=== PATIENT | male | born 1950 | race Caucasian/White ===

== ENCOUNTER 2018-12-17 10:02 | Inpatient (IN) ==
[2018-11-11 16:49] LABS: Basophils # (auto) 0.03 K/uL (0-0.2); Basophils % (auto) 0.6 %; Eosinophils # (auto) 0.71 K/uL (0-0.5); Eosinophils % (auto) 13.1 %; Hematocrit (blood only) 43.4 % (42-52); Hemoglobin 14.5 g/dL (14.0-18.0); Immature Granulocytes # (auto) 0.01 K/uL (0.00-0.02); Immature Granulocytes % (auto) 0.2 %; Lymphocytes % (auto) 25.8 %; Mean Corpuscular Hgb Conc 33.4 g/dL (32-36); Mean Corpuscular Volume 86.3 fL (80-100); Monocytes # (auto) 0.62 K/uL (0.11-0.59); Monocytes % (auto) 11.4 %; Neutrophils # (auto) 2.66 K/uL (1.4-6.5); Neutrophils % (auto) 48.9 %; Platelet Count 216 K/uL (130-400); RDW Coefficient of Variation 13.8 % (11.5-14.5); RDW Standard Deviation 43.5 fL (36.4-46.3); Red Blood Count 5.03 M/uL (4.7-6.1); White Blood Count 5.43 K/uL (4.8-10.8)
[2018-11-11 17:06] LABS: INR 1.1 (0.9-1.1); Partial Thromboplastin Ratio 1.1; Partial Thromboplastin Time 30.6 Seconds (21.0-31.0); Prothrombin Time 11.4 Seconds (9.0-12.0)
[2018-11-11 17:08] LABS: Blood Urea Nitrogen 18 mg/dl (7-18); C Reactive Protein < 0.29 mg/dl (0-0.29); Calcium 8.9 mg/dl (8.5-10.1); Carbon Dioxide 28 mmol/L (21-32); Chloride 109 mmol/L (98-107); Est GFR (African American) 80.2; Est GFR (Non-African American) 69.2; Glucose 88 mg/dl (70-99); Potassium 4.4 mmol/L (3.5-5.1); Sodium 141 mmol/L (136-145)
--- NOTE | 2018-12-12 10:35 | Anesthesiology Consultation ---
Date of Service December 12, 2018 Assessment & Plan (1) Encounter for pre-operative examination: Xarelto instructions: Spoke with patient via phone 11/22/18; patient states he was advised to hold Xarelto 72 hours prior to surgery per surgeon/prescriber.* Chart Review Chart Review: Acceptable Risk for Surgery and Patient NOT seen in Pre Admission Testing History Surgery Operation Date: 12/17/18 08:50 Proposed Procedures p Right Total Knee Replacement - Bossman Vincent MD Height/Weight Height: 5 ft 11.5 in Weight: 98.4 kg Allergies Allergy/AdvReac Type Severity Reaction Status Date / Time latex Allergy Unknown Rash Verified 11/21/18 09:01 neoprene Allergy Unknown Rash Uncoded 11/21/18 09:01 Medications Home Medications Medication Instructions Recorded Confirmed Last Taken diclofenac sodium 75 mg PO BID 08/22/18 11/21/18 Unknown propranolol 60 mg PO QAM 08/22/18 11/21/18 Unknown multivitamin 1 tab PO QAM 11/21/18 11/21/18 Unknown rivaroxaban [Xarelto] 20 mg PO QAM 11/21/18 11/21/18 Unknown Past Medical History Medical History Aortic aneurysm PCP monitoring with annual imaging (3.8 cm per patient and stable x years) Deep vein thrombosis 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 2/2 inmobility in setting of knee injury; currently on xarelto Osteoarthritis Pulmonary embolism 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 2/2 inmobility in setting of knee injury; currently on xarelto Sleep apnea CPAP Tremor on propranolol Past Family History Family History Father Family history of cancer Brother Family history of cancer Past Surgical History Surgical History History of appendectomy History of arthroscopy of right knee History of colonoscopy History of tonsillectomy Social History Smoking Status: Former smoker tobacco type: cigarettes Hx Alcohol Use: Yes Alcohol type: beer alcohol intake frequency: other Hx Substance Use: No substance use type: does not use Testing Laboratory Results 11/11/18 13:25 11/11/18 13:25 PT 11.4 Seconds (9.0-12.0) 11/11/18 13:25 INR 1.1 (0.9-1.1) 11/11/18 13:25 APTT 30.6 Seconds (21.0-31.0) 11/11/18 13:25 Blood Type A Positive 11/11/18 13:26 Antibody Screen NEGATIVE 11/11/18 13:26 Electrocardiogram Date: 08/26/18 Findings: + SB @ (59) Chest X-Ray Date: 08/26/18 Findings: + NAD
--- NOTE | 2018-12-14 19:07 | History and Physical Report ---
DATE OF ADMISSION: 12/17/2018 CHIEF COMPLAINT: Right knee pain. HISTORY OF PRESENT ILLNESS: The patient is a 68-year-old gentleman from [place] who now presents for surgical treatment of his right knee. We had actually scheduled him for right knee replacement back in August but he developed a DVT in his left lower extremity and a PE. He has been put on Xarelto. He has now been cleared to proceed with surgery by his medical doctor. He has no known clotting disorder. There is a family history of blood clots. This patient has no history of clots in the past. With respect to his right knee, he has had a long history of knee problems. He had right knee scoped back in 1997, which did help him to some degree. Over the past several years, he has developed increased pain and discomfort. He has been treated with aspirations and injection which become less successful over time. He has resorted to using a cane to get around to his knee pain. He would like to have his right knee replaced. PAST MEDICAL HISTORY: 1. Sleep apnea with CPAP machine. 2. Arthritis. 3. Obesity. 4. History of DVT, PE on Xarelto 20 mg a day. PAST SURGICAL HISTORY: Include: 1. Tonsillectomy. 2. Right knee arthroscopy. ALLERGIES: None. CURRENT MEDICATIONS: 1. Propranolol. 2. Xarelto 20 mg a day. SOCIAL HISTORY: A 68-year-old male patient from [place]. 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 He does not smoke. FAMILY HISTORY: Significant for multiple family members with blood clots. REVIEW OF SYSTEMS: Negative for diabetes, neurologic problem, vascular problem, bleeding disorders. No known clotting disorders. He did have this one DVT or PE. PHYSICAL EXAMINATION: GENERAL: A fairly large middle-aged male. Looks to be in reasonably good health. HEENT: Benign. NECK: Supple, no lymphadenopathy. LUNGS: Clear to auscultation. HEART: Regular rate and rhythm. ABDOMEN: Soft, nontender, nondistended. EXTREMITIES: Grossly neurovascularly intact except as follows. Examination of the right knee reveals the patient walks with use of a cane. He has got varus alignment to his knee. He does limp on this side and has a varus thrust with weightbearing. He is tender over the medial joint line. Small knee effusion. Range of motion is 5-125. No pain with hip motion. X-RAYS: X-rays of the right knee reviewed. Shows advanced right knee DJD. He has got tricompartment disease. He has got osteophytes in all 3 compartments. He has got joint space narrowing. ASSESSMENT: A 68-year-old male with a history of a right knee arthroscopy in 1997 with advanced right knee degenerative joint disease. He has failed conservative care. We had scheduled him for surgery in the past, but he had a deep venous thrombosis and pulmonary embolism now been treated, now elects to proceed with surgery. PLAN: We will take him to the operating room and do right total knee replacement. The risks and benefits of right knee replacement were explained to the patient including but not limited to DVT, PE, , infection, neurological injury, vascular injury, bleeding problem, pain, limited range of motion, stiffness, failure to relieve symptoms, incomplete relief of symptoms, need for further surgery in future, fracture, leg length inequality, nerve palsy, persistent pain. I did tell him with his history of a blood clot, he is certainly at increased risk after surgery. We will take him off his Xarelto 3 days preoperatively and we will start prophylactically 24 hours postop. As far as discharge plans, he is planning to be discharged home using [facility] home health program.
[~2018-12-17 10:02] MED LIST: ACETAMINOPHEN 500 MG TAB PO SCH; BUPIVACAINE 0.5 % 5 MG/1 ML PF 10ML VIAL ONE; BUPIVACAINE LIPOSOME/PF 266 MG, BUPIVACAINE/EPINEPHRINE 50 ML, SODIUM CHLORIDE 0.9% 30 ... INFIL SCH; BUPIVACAINE/EPINEPHRINE 0.25% 1:200,000 30 ML VIAL ONE; CEFAZOLIN 2000MG 2,000 MG/15 ML SYR IV SCH; DEXAMETHASONE SOD INJ 4 MG/ML VIAL ONE; FAMOTIDINE 20 MG TAB PO SCH; GABAPENTIN 300 MG CAP PO SCH; LR 500ML BOLUS, THEN 15ML/HR IV SCH; LR 60ML/HR IV SCH; METOCLOPRAMIDE HCL 10 MG TABLET PO SCH; SCOPOLAMINE 1.5 MG TDSY TD SCH; TRANEXAMIC ACID 1,000 MG **IV Intra-op IV SCH
--- NOTE | 2018-12-17 11:15 | History & Physical Bridge Note ---
Date of Service December 17, 2018 History & Physical Bridge Note I have examined the patient, reviewed the History & Physical and in the interval since the performance of the History & Physical I have noted the following changes of clinical significance: no changes noted
[2018-12-17] MEDS ORDERED: MIDAZOLAM HCL 1 MG/ML 2ML VIAL ONE ×2 (13:22→13:51)
[2018-12-17] MEDS ORDERED: ALBUTEROL 0.5% NEB SOLN 2.5 MG/0.5 ML VIAL ONE (13:22)
[2018-12-17] MEDS ORDERED: fentaNYL citrate 100 MCG/2 ML VIAL ONE ×2 (13:22→13:51)
[2018-12-17] MEDS ORDERED: BUPIVACAINE LIPOSOME 1.3% 266 MG/20 ML VIAL ONE (13:25)
[2018-12-17] MEDS ORDERED: BACITRACIN INJ 50,000 UNIT VIAL ONE (13:25)
[2018-12-17] MEDS ORDERED: EPINEPHrine INJ 1 MG/ML AMP ONE (13:25)
[2018-12-17] MEDS ORDERED: SODIUM CHLORIDE 0.9% PF 50 ML VIAL ONE (13:25)
[2018-12-17] MEDS ORDERED: BUPIVACAINE 0.25% 30 ML VIAL ONE (13:26)
[2018-12-17] MEDS ORDERED: PROPOFOL IV EMULSION 10 MG/ML 20 ML VIAL IV ONE (14:12)
[2018-12-17] MEDS ORDERED: ONDANSETRON INJ 2 MG/ML 2 ML VIAL ONE (14:12)
[2018-12-17] MEDS ORDERED: LIDOCAINE HCL 2% 2 ML VIAL/AMP(20MG/ML) INFIL ONE (14:12)
[2018-12-17] MEDS ORDERED: ePHEDrine sulfate 50 MG/ML SYR ONE (14:19)
--- NOTE | 2018-12-17 15:36 | Post Operative Brief Note ---
PG Immediate Post Op with CF Date of Surgery December 17, 2018 Pre & Post Diagnosis Operation Date: 12/17/18 12:30 Pre-Op Diagnosis: right knee advanced degenerative joint disease Post-Op Diagnosis: right knee advanced degenerative joint disease Procedure Operation Date: 12/17/18 12:30 Actual Procedures p Right Total Knee Replacement Cemented(Right) - Bossman Vincent MD Surgeon Bossman Vincent MD Senior Agricultural Assistant Tawnya, COLT Estimated Blood Loss 50 Findings Consistent with Post-Op Diagnosis Fluids 1000 cc Specimens Specimen Description: Permanent specimen A: right knee bone and tissue Drains Uribe Catheter (16fr silicone uribe catheter placed by Doug Bowling PA-C, without difficulty; uribe demonstrates clear yellow urine. Output measured and recorded by anesthesia.) Anesthesia Type Spinal MAC Complications none Disposition Accompanied Patient To Recovery: No Disposition: Recovery Room
--- NOTE | 2018-12-17 16:01 | XRay Report ---
XR knee RT 2V routine HISTORY: 68 years-old Male Surgical Post Op right knee total joint arthroplasty. History of degenera tive joint disease COMPARISON: Right knee radiographs 08/06/2018 TECHNIQUE: 2 views of the right knee FINDINGS: Right knee total joint arthroplasty and patella resurfacing demonstrates satisfactory alignment. Into midline skin adrian are noted along with expected postsurgical soft tissue swelling and deep tissue air with surgical drainage catheter. IMPRESSION: Satisfactory alignment of the right knee total joint arthroplasty. The above report was generated using voice recognition software. It may contain grammatical, syntax o r spelling errors. Electronically signed by: Filemon Pastrana M.D. 12/17/2018 4:00 PM
--- NOTE | 2018-12-17 16:31 | Anesthesiology Progress Note ---
Date of Service December 17, 2018 Anesthesia Post Procedure Vital Signs Vital Signs: Temp Pulse Pulse Resp BP Pulse Ox 12/17/18 16:30 36.9 C 51 L 19 131/76 95 12/17/18 16:20 36.9 C 49 L 19 115/74 95 12/17/18 16:10 37.0 C 47 L 18 118/66 95 12/17/18 16:00 54 L 18 119/75 94 12/17/18 15:50 50 L 20 116/70 97 12/17/18 15:43 36.7 C 54 L 16 109/64 97 12/17/18 10:33 36.6 C 55 L 22 143/87 H 97 Transfer of Care Handoff Completed per policy Notes Mental Status: alert / awake / arousable Patient Amnestic to Procedure: Yes Nausea / Vomiting: adequately controlled Pain: adequately controlled Airway Patency, RR, SpO2: stable & adequate BP & HR: stable & adequate Hydration State: stable & adequate Anesthetic Complications: no major complications apparent
[2018-12-17] MEDS ORDERED: TAMSULOSIN HCL 0.4 MG CAP PO PRN (16:48)
[2018-12-17] MEDS ORDERED: BISACODYL 10 MG SUPP PR PRN (16:48)
[2018-12-17] MEDS ORDERED: ONDANSETRON INJ 2 MG/ML 2 ML VIAL IV PRN (16:48)
[2018-12-17] MEDS ORDERED: ALUMINUM/MAGNESIUM SUSP 30 ML UDC PO PRN (16:48)
[2018-12-17] MEDS ORDERED: NALOXONE HCL 0.4 MG/1 ML VIAL/CARP IV PRN (16:48)
[2018-12-17] MEDS ORDERED: MAGNESIUM HYDROXIDE SUSP 30 ML UDC PO PRN (16:48)
[2018-12-17] MEDS ORDERED: METOCLOPRAMIDE HCL INJ 5 MG/ML 2 ML VIAL IV PRN (16:48)
[2018-12-17] MEDS ORDERED: HYDROmorphone INJ 0.5 MG/0.5 ML SYR IV PRN (16:48)
[2018-12-17] MEDS: SODIUM CHLORIDE 0.9% 1000ML 1,000 ML IV SCH (17:23)
[2018-12-17] MEDS: CHECK SCOPOLAMINE PATCH PLACEMENT SCH ×2 (17:24→23:59)
[2018-12-17] MEDS: KETOROLAC TROMETHAMINE 15 MG/ML VIAL IV SCH ×2 (17:25→23:56)
[2018-12-17] MEDS: FERROUS GLUCONATE 324 MG TAB PO SCH (17:25)
[2018-12-17] MEDS: ASCORBIC ACID 500 MG TAB PO SCH (17:25)
[2018-12-17] MEDS: ACETAMINOPHEN 500 MG TAB PO SCH (21:01)
[2018-12-17] MEDS: SENNA 8.6 MG TAB PO SCH (21:01)
[2018-12-17] MEDS: DOCUSATE SODIUM 100 MG CAP PO SCH (21:02)
[2018-12-17] MEDS: CEFAZOLIN 2000MG 2,000 MG/15 ML SYR IV SCH (21:08)
--- NOTE | 2018-12-17 23:24 | Operative Report ---
DATE OF OPERATION: 12/17/2018 SURGEON: Bossman Vincent MD [employer]ILINGS [employer] PUMPER: HAYDEE Holden PREOPERATIVE DIAGNOSIS: Right knee degenerative joint disease. POSTOPERATIVE DIAGNOSIS: Right knee degenerative joint disease. PROCEDURE PERFORMED: Right cemented posterior stabilized total knee arthroplasty. COMPLICATIONS: None. ESTIMATED BLOOD LOSS: 50 mL. FLUID REPLACEMENT: 1000 mL crystalloid fluid replacement. TOURNIQUET TIME: 68 minutes at 300 mmHg. ANESTHESIA: Spinal with adductor canal block. DRAINS: None. SPECIMENS: Right knee sent for pathology. OPERATIVE INDICATIONS: The patient is a 68-year-old fairly active gentleman from [place] who had a long history of right knee pain and discomfort. He has been through extensive conservative treatment in the past which became less successful over time. He has become markedly debilitated by the pain such that he has had to use a cane to get around. X-rays revealed tricompartment disease. He elected to proceed with operative treatment. OPERATIVE FINDINGS: Operative findings revealed extensive grade 4 changes of the medial as well as patellofemoral compartments. He has a slight varus deformity to his knee. He had a very large knee joint effusion with some moderate synovitis. OPERATIVE IMPLANTS: Operative implants consisted of: 1. Biomet Vanguard size 72.5 right posterior stabilized femoral component. 2. Biomet size 79 tibial tray. 3. A 10 mm posterior stabilized polyethylene insert. 4. A 34 x 8.5 all poly patella. OPERATIVE PROCEDURE: The patient was taken to the operating room, identified and placed on the operating table in supine position. All contact areas were appropriately padded. IV antibiotics provided by anesthesia team. A spinal anesthetic and adductor canal block had been provided in the holding area. Odom catheter was placed in sterile fashion. Right thigh tourniquet was then placed and the right lower extremity was then prepped and draped in usual sterile fashion. The right leg was elevated and exsanguinated with an Esmarch and tourniquet was placed at 300 mmHg. An anterior approach of the right knee was then performed through a longitudinal incision centered over the patella. Sharp dissection was carried through subcutaneous tissue down to the level of the extensor mechanism. A medial parapatellar arthrotomy incision was made. Some subperiosteal dissection was carried out medially. The fat pad resected from beneath the patellar tendon. The lateral patellofemoral ligament was released. The patella was everted and knee was flexed. The osteophytes were taken off the distal femur. The ACL and PCL were then released from the distal femur and the tibia subluxated anteriorly. External tibial alignment jig was then placed in the anterior face of the tibia and adjusted 14 mm medially. Proximal tibial cut was made to remove about a millimeter of bone from the most deficient aspect of the medial tibial plateau. He did have a markedly varus tibia. The tibia was then sized to a size 79. Attention was then drawn to the femur. The distal femur was entered with a sharp drill. Intramedullary canal was suctioned. A right 6-degree valgus cutting guide was placed. Distal femoral cutting block was pinned in place. Distal femoral cut was made to take an additional 3 mm of bone off the distal femur. The femur was then sized to a size 72.5. We did downsize this slightly. The AP cutting block was pinned parallel to the epicondylar axis, which was 4 degrees of external rotation. The anterior cut, anterior chamfer cut, posterior cut, posterior chamfer cuts were made. Box cutting guide was placed and adjusted slightly lateral and the box cut was made. The knee was flexed. The remnants of the medial and lateral menisci were excised. The osteophytes were taken off the posterior aspect of the femur. A trial femoral component was placed. The tibial tray was pinned in maximum external rotation and drill and stem punch were used to create defect in proximal tibia for the tibial tray. The knee was then trialed and the 10 mm insert fit most appropriately. Attention was then drawn to the patella. The patella was cleaned of all soft tissues. Patella thickness measured 25 mm in thickness, was cut down to 15. It was sized to a size 34 patella. Lug holes were drilled for 34 patella. Lateral osteophyte was removed. Patella button was placed. Knee was taken through range of motion, patella tracked nicely with no thumbs test. Attention was then drawn toward placing the permanent components. All trial components were removed. Bone plug was placed in the distal femur to limit blood loss. A double batch of Palacos G cement was mixed. A Biomet Vanguard size 72.5 right posterior stabilized femoral component, size 79 tibial tray, 10 mm posterior stabilized polyethylene insert, and a 34 x 8.5 all poly patella were then cemented in place. Knee was brought into full extension until cement hardened. A final cement check was then performed. Pericapsular tissues were injected with a total of 100 mL of combination of 20 mL Exparel, 30 mL of normal saline, 50 mL 0.25% Marcaine with epinephrine. The patient did receive 1 gram of tranexamic acid. The tourniquet was then let down for final tourniquet time of 68 minutes. Hemostasis was assured with use of electrocautery. The wound was once again irrigated. Extensor mechanism was then closed with a combination of #1 PDS suture and #1 Vicryl suture in [id number] fashion. Extensor mechanism was checked and found to be intact. The subcutaneous tissue was then closed with 2 Dexon suture in a buried interrupted fashion. Skin was closed with skin adrian. Leg was then cleaned, dried and a sterile dressing of Xeroform, 4 x 4, sterile cast padding and Philippe bandage were applied. The patient then transferred to the recovery room in stable condition. The patient tolerated the procedure well with no complications. All needle and sponge counts were correct at the end of the operation. I attest to the content of the Intraoperative Record and any orders documented therein. Any exception s are noted below.
[2018-12-18] MEDS: SODIUM CHLORIDE 0.9% 1000ML 1,000 ML IV SCH
[2018-12-18] MEDS: CEFAZOLIN 2000MG 2,000 MG/15 ML SYR IV SCH (05:11)
[2018-12-18] MEDS: ACETAMINOPHEN 500 MG TAB PO SCH ×3 (05:11→21:46)
[2018-12-18] MEDS: KETOROLAC TROMETHAMINE 15 MG/ML VIAL IV SCH ×2 (05:11→12:05)
[2018-12-18 07:10] LABS: Hemoglobin 11.9 g/dL (14.0-18.0); Mean Corpuscular Hgb Conc 33.1 g/dL (32-36); Mean Corpuscular Volume 86.1 fL (80-100); Mean Platelet Volume 10.7 fL (7.4-10.4); Platelet Count 166 K/uL (130-400); RDW Coefficient of Variation 14.3 % (11.5-14.5); RDW Standard Deviation 45.4 fL (36.4-46.3); Red Blood Count 4.18 M/uL (4.7-6.1); White Blood Count 9.95 K/uL (4.8-10.8)
[2018-12-18 07:39] LABS: BUN Creatinine Ratio 14.2 (10-20); Calcium 8.2 mg/dl (8.5-10.1); Creatinine Clr Calc Pharmacy 72.4 ml/min; Est GFR (African American) 75.9; Est GFR (Non-African American) 65.5; Potassium 3.9 mmol/L (3.5-5.1)
[2018-12-18] MEDS ORDERED: MULTIVITAMIN TAB PO SCH (09:00)
[2018-12-18] MEDS: PROPRANOLOL HCL 60 MG LA CAP PO SCH (09:01)
[2018-12-18] MEDS: MULTIVITAMIN TAB PO SCH (09:01)
[2018-12-18] MEDS: FERROUS GLUCONATE 324 MG TAB PO SCH ×2 (09:02→17:47)
[2018-12-18] MEDS: DOCUSATE SODIUM 100 MG CAP PO SCH ×2 (09:02→21:47)
[2018-12-18] MEDS: ASCORBIC ACID 500 MG TAB PO SCH ×2 (09:02→17:48)
--- NOTE | 2018-12-18 10:13 | Anesthesiology Progress Note ---
Date of Service December 18, 2018 Anesthesia Post Procedure Vital Signs Vital Signs: Temp Pulse Pulse Pulse Resp BP Pulse Ox 12/18/18 03:11 36.8 C 56 L 14 149/77 H 94 12/17/18 23:18 36.5 C 46 L 16 158/76 H 94 12/17/18 19:53 36.5 C 55 L 16 116/62 92 12/17/18 18:54 36.3 C L 45 L 16 118/65 97 12/17/18 17:49 37 C 49 L 16 115/64 96 12/17/18 17:15 36.7 C 51 L 16 128/75 96 12/17/18 16:40 36.7 C 47 L 16 113/64 95 12/17/18 16:30 36.9 C 51 L 19 131/76 95 12/17/18 16:20 36.9 C 49 L 19 115/74 95 12/17/18 16:10 37.0 C 47 L 18 118/66 95 12/17/18 16:00 54 L 18 119/75 94 12/17/18 15:50 50 L 20 116/70 97 12/17/18 15:43 36.7 C 54 L 16 109/64 97 12/17/18 10:33 36.6 C 55 L 22 143/87 H 97 Notes Mental Status: alert / awake / arousable and participated in evaluation Nausea / Vomiting: adequately controlled Pain: adequately controlled Airway Patency, RR, SpO2: stable & adequate BP & HR: stable & adequate Hydration State: stable & adequate Neuraxial Anesthesia: sensory block resolved
--- NOTE | 2018-12-18 13:55 | Progress Note ---
DATE: 12/18/2018 SUBJECTIVE: A 68-year-old gentleman postop day 1 from a right knee replacement. He is doing well. Pain is controlled. Had a little bit of issues with some confusion. Denies any chest pain or shortness of breath. Not feeling dizzy or lightheaded. OBJECTIVE: VITAL SIGNS: Temperature 36.6. Vital signs stable. GENERAL: Physical examination shows a pleasant, middle-aged male. Sitting up in bed and talking to his family. Looks comfortable. EXTREMITIES: Examination of the right leg reveals the dressing to be in place. There is some bloody drainage which has been reinforced. He can dorsiflex and plantarflex his foot appropriately. He is neurologically intact. LABORATORY DATA: Hemoglobin 11.9. Hematocrit 36.0. Electrolytes are stable. ASSESSMENT: A 68-year-old gentleman postop day 1 from left knee replacement, doing well. Does have a history of DVT and PE in the past, normally on Xarelto. He has had a little bit of confusion, which is just likely related to medicines and foreign environment and , but seems pretty appropriate this afternoon. PLAN: 1. DVT prophylaxis including thigh-high TEDs, SCDs, and Xarelto. We are going to put him on a prophylactic dose for the first of 72 hours and then convert him to a full-strength dose on discharge. 2. PT/OT. Weight bear as tolerated. Right total knee protocol. 3. Pain control. We are going to try and limit pain medicines to avoid confusion issues. He has taken Tylenol and Toradol. 4. Confusion. Seems pretty awake, alert and appropriate this afternoon. I talked to his about trying to keep him up during the day and encourage him to sleep at night. Will limit his pain medicines. 5. Disposition: Plan to discharge to home with some home health once adequately recovered.
[2018-12-18] MEDS: NICOTINE 7 MG/24 HR TDSY TD SCH (14:49)
[2018-12-18] MEDS: RIVAROXABAN 10 MG TABLET PO SCH (16:25)
[2018-12-18] MEDS: TRAMADOL HCL 50 MG TABLET PO PRN (21:46)
[2018-12-18] MEDS: SENNA 8.6 MG TAB PO SCH (21:47)
[2018-12-19] MEDS: TRAMADOL HCL 50 MG TABLET PO PRN ×2 (05:08→10:49)
[2018-12-19] MEDS: ACETAMINOPHEN 500 MG TAB PO SCH (05:09)
[2018-12-19] MEDS: NICOTINE 7 MG/24 HR TDSY TD SCH (07:38)
[2018-12-19] MEDS: MULTIVITAMIN TAB PO SCH (07:38)
[2018-12-19] MEDS: FERROUS GLUCONATE 324 MG TAB PO SCH (07:38)
[2018-12-19] MEDS: PROPRANOLOL HCL 60 MG LA CAP PO SCH (07:39)
[2018-12-19] MEDS: ASCORBIC ACID 500 MG TAB PO SCH (07:39)
[2018-12-19] MEDS: DOCUSATE SODIUM 100 MG CAP PO SCH (07:39)
--- NOTE | 2018-12-19 09:10 | Progress Note ---
DATE: 12/19/2018 SUBJECTIVE: A 68-year-old gentleman postop day 2 from right knee replacement. He is doing a bit better today. Pain is controlled. No real confusion overnight. No chest pain or shortness of breath. Not feeling dizzy or lightheaded. OBJECTIVE: VITAL SIGNS: Temperature 37.2. Vital signs stable. GENERAL: Reveals a pleasant, middle-aged male. He is sitting up in his bedside chair, looks pretty comfortable. EXTREMITIES: Examination of the right leg reveals the dressing to be clean, dry and intact. Some [id number] swelling. Calf is soft and supple. He is neurologically intact. ASSESSMENT: A 68-year-old gentleman with a history of a DVT and PE in the past postop day 2 from right knee replacement, doing well. Pain is reasonably well controlled. He is neurologically intact. PLAN: 1. DVT prophylaxis including thigh-high TEDs, SCDs, and Xarelto. He is on a prophylactic dose today and we will discharge him on a normal dose starting tomorrow. 2. PT/OT. Weight bear as tolerated. Right total knee protocol. 3. Pain control, doing okay with current pain regimen. 4. Disposition: Plan to discharge to home with home health likely later today.
[2018-12-19] MEDS: RIVAROXABAN 10 MG TABLET PO SCH (10:25)
--- NOTE | 2018-12-24 06:46 | Discharge Summary ---
ADMITTING PHYSICIAN AND SURGEON: Dr. Bossman Vincent. ADMITTING DIAGNOSIS: Right knee degenerative joint disease. SURGERY PERFORMED: Right total knee arthroplasty. SECONDARY DIAGNOSES: Sleep apnea, arthritis, obesity, history of deep venous thrombosis and pulmonary embolism. CONSULTS: None obtained. HISTORY AND PHYSICAL EXAMINATION: Well documented in the patient's chart. HOSPITAL COURSE: The patient was admitted on 12/17/2018, underwent total knee arthroplasty, tolerated the procedure well. There were no complications. He was transferred to the PACU postoperatively and later to the orthopedic floor for further care. He was given Ancef for antibiotic prophylaxis, RENNY stockings, SCDs and Xarelto for DVT prophylaxis. Hemoglobin, hematocrit and vital signs were monitored during his hospital stay and remained stable. He did not require any blood transfusions. There were no complications. By postoperative day 2, he was tolerating a regular diet, pain was controlled with oral pain medicine. He was participating in physical therapy. Postop day 2, he was discharged home, set up with home health services. He was given printed discharge instructions as well as new prescriptions for extra-strength Tylenol and tramadol. Continue his home medicines including Xarelto. Continue RENNY stockings, PT, weightbearing as tolerated. Follow up approximately 2 weeks postop or sooner if there are any problems or concerns.
== END 2018-12-19 11:46 | disposition home health service (06) | DRG 470 ==
LOC: ASU 10:02 → 3E 15:41

== ENCOUNTER 2021-04-17 18:48 | Inpatient (IN) ==
[2021-04-17] MEDS ORDERED: HYDROmorphone INJ 1 MG/ML SYRINGE IM STA (21:31)
[2021-04-17] MEDS ORDERED: KETOROLAC TROMETHAMINE 15 MG/ML VIAL IM STA (21:31)
[2021-04-17] MEDS ORDERED: PROMETHAZINE HCL INJ 25 MG/ML 1 ML VIAL IM STA (21:31)
--- NOTE | 2021-04-17 21:37 | Emergency Department Note ---
History of Present Illness General Chief complaint: Leg Injury/Pain Stated complaint: LT LEG PAIN, HERNIATED DISC Time Seen by Provider: 04/17/21 21:19 Source: patient History of Present Illness Provider complaint: Left low back pain Onset (ago): month(s) Location: back and left Radiation: extremity Pain Consistency: + intermittent Maximum Pain Intensity: 9 Quality: + sharp Relieved By: + other (Sitting) Exacerbated By: + other (Walking) Associated symptoms: no chest pain, no cough, no fever/chills, no headaches, no nausea/vomiting, no shortness of breath or no weakness This is a 70-year-old male with a history of lumbar disc herniation on the left side presenting with left lower back pain rating down his left leg for over a month. He does state that he fell off of a ladder about a month ago but he was having pain before that. He describes the pain as a stabbing pain which is worse when he tries to walk. Is better when he sits down. He rates it a 9 out of 10 in severity. No associated numbness or weakness to the legs. He has had no fecal urinary incontinence or saddle anesthesia. He is followed by pain management and also sees Dr. Diez of orthopedic spine. He states that he had an injection to his spine 3 weeks ago which seemed to make it worse. He states that he was given oxycodone but that does not help it so he has not been taking it. He has not been taking anything for pain currently. He denies any fever, cough or cold symptoms, chest pain, shortness of breath, abdominal pain or urinary symptoms. He denies any recent injury. 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 2/2 inmobility in setting of knee injury; currently on xarelto Osteoarthritis Pulmonary embolism 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 2/2 inmobility in setting of knee injury; currently on xarelto Sleep apnea CPAP Tremor on propranolol Surgical History History of appendectomy History of arthroscopy of right knee History of colonoscopy History of tonsillectomy Status post right knee replacement Family History Father Family history of cancer Brother Family history of cancer Social History Smoking Status: Never smoker Second Hand Exposure: No; Hx Alcohol Use: Yes Alcohol type: beer Hx Substance Use: No Preferred Language: Czech Communication Ability: Effective Wiring Mechanic Required: No Beliefs That Will Affect Care: None Current Living Situation: Alone Feels Safe at Home: Yes Assistive Devices: Walker Review of Systems See HPI for pertinent positives & negatives. and A total of 10 systems reviewed and were otherwise negative Physical Exam Vital Signs Vital Signs - 24 hr 04/17/21 18:52 04/17/21 23:34 Temperature 36.6 C Temperature Source Temporal Artery Scan Pulse Rate 76 Pulse Rate [Right Finger] 59 L Respiratory Rate 20 20 Blood Pressure 156/92 H Blood Pressure [Right Arm] 144/78 H Blood Pressure Mean 113 Blood Pressure Mean [Right Arm] 100 Pulse Oximetry 97 94 Oxygen Delivery Method Room Air Sepsis Recent Fever Within 48 Hours No Sepsis New/Unexplained Change in Mental Status N/A Sepsis Action Taken by Nursing No Action Required Constitutional: Vital signs reviewed. Eyes: Pupils are equal round reactive to light. Conjunctiva are noninjected. ENT: Pharynx is clear without erythema or exudate. Mucous membranes are moist. Neck supple without meningeal signs. Respiratory: Clear to auscultation bilaterally. Breath sounds are equal bilaterally. Cardiovascular: Regular rate and rhythm. No rubs or gallops. GI: Soft, nondistended and nontender. Bowel sounds are present. Musculoskeletal: No peripheral edema. No lower extremity tenderness. Integumentary: No cyanosis. or jaundice. Neurological: The patient is awake and alert. No focal deficits. Motor and sensation are intact throughout the lower extremities bilaterally. Strength is slightly increased on the left leg compared to the right. Positive straight leg raise at 35 degrees on the left side only. Psychiatric: Normal affect. Not anxious appearing. Course Administered Medications Discontinued Medications Hydromorphone HCl (Hydromorphone Inj 1 Mg/Ml Syringe) 1 mg IM NOW STA Stop: 04/17/21 21:32 Last Admin: 04/17/21 22:02 Dose: 1 mg Documented by: [id number] Ketorolac Tromethamine (Ketorolac Tromethamine 15 Mg/Ml Vial) 10 mg IM NOW STA Stop: 04/17/21 21:32 Last Admin: 04/17/21 22:02 Dose: 10 mg Documented by: [id number] Promethazine HCl (Promethazine Hcl Inj 25 Mg/Ml 1 Ml Vial) 25 mg IM NOW STA Stop: 04/17/21 21:32 Last Admin: 04/17/21 22:02 Dose: 25 mg Documented by: [id number] Medical Decision Making Differential Diagnosis Intervertebral disc disease, disc herniation, radiculopathy, cauda equina syndrome, fracture Medical Records Attestation: I reviewed the patient's medical records. I did perform a limited focused review of portions of the patient's old chart on the electronic medical record. The patient has had no recent pertinent visits to this hospital. Home Medications Current Medication List: was personally reviewed by me Laboratory Data Result diagrams: 04/17/21 23:40 04/17/21 23:40 Lab Results 04/17/21 Range/Units 23:40 WBC 6.21 (4.8-10.8) K/uL RBC 4.88 (4.7-6.1) M/uL Hgb 14.5 (14.0-18.0) g/dL Hct 42.6 (42-52) % MCV 87.3 (80-100) fL MCH 29.7 (25-34) pg MCHC 34.0 (32-36) g/dL RDW Std Deviation 42.4 (36.4-46.3) fL RDW Coeff of Luis Enrique 13.2 (11.5-14.5) % Plt Count 204 (130-400) K/uL MPV 10.4 (7.4-10.4) fL Immature Gran % (Auto) 0.2 % Neut % (Auto) 51.9 % Lymph % (Auto) 26.6 % [place] % (Auto) 12.1 % Eos % (Auto) 8.9 % Baso % (Auto) 0.3 % Neut # (Auto) 3.23 (1.4-6.5) K/uL Lymph # (Auto) 1.65 (1.2-3.4) K/uL [place] # (Auto) 0.75 H (0.11-0.59) K/uL Eos # (Auto) 0.55 H (0-0.5) K/uL Baso # (Auto) 0.02 (0-0.2) K/uL Immature Gran # (Auto) 0.01 (0.00-0.02) K/uL Imaging Data Attestation: I personally reviewed and interpreted this imaging study as follows: My Impression: X-ray of the lumbar spine per my interpretation shows no acute fracture or d islocation. He does have compression deformities which appear old. He has scoliosis and degenerative changes with osteophytes. MDM Narrative I did evaluate the patient as noted above. The patient is presenting with persistent low back pain with lumbar radiculopathy on the left side for over a month. He is followed by pain management and had an injection which worsened his pain 3 weeks ago. He is on oxycodone but not taking it because it does not help him. He is able to walk and has no neurologic deficits to suggest cauda equina syndrome. He did walk from the triage area to the C pod. I did order and personally reviewed the images of the patient's lumbar spine x-rays as described above. I did not see any acute fracture. He does have old compression deformities as well as degenerative changes and some scoliosis. I did treat the patient with IM Dilaudid 1 mg, Phenergan 25 mg and Toradol 10 mg IM. At the request of the patient and his I did talk to Dr. Diez of orthopedic spine. He felt the patient should be admitted at this point as he has been having intractable pain and would likely just come back if we discharged him today. He did hospitalize the patient. I put in some orders for an IV and blood work as well as a Covid test. I did discuss the plan with the patient and his . He is feeling better at this time. CBC does not demonstrate any leukocytosis or anemia. Platelet count is 204. Impression & Plan Intractable low back pain, Left lumbar radiculopathy Discharge Plan Visit Data Chief Complaint: Leg Injury/Pain Stated Complaint: LT LEG PAIN, HERNIATED DISC ED Provider: Zaheer Toribio Discharge Problem: Intractable low back pain, Left lumbar radiculopathy Patient Disposition: Being Evaluated by Hospitalist Forms Stand Alone Forms: [facility] Prescriptions Prescriptions: No Action propranolol 60 mg Capsule,Extended Release 24 Hr 60 mg PO QAM RF: 0 Referrals Referrals: Melany Bar MD [Primary Care Provider] -
[2021-04-17 23:55] LABS: Basophils # (auto) 0.02 K/uL (0-0.2); Basophils % (auto) 0.3 %; Eosinophils # (auto) 0.55 K/uL (0-0.5); Eosinophils % (auto) 8.9 %; Hematocrit (blood only) 42.6 % (42-52); Hemoglobin 14.5 g/dL (14.0-18.0); Immature Granulocytes # (auto) 0.01 K/uL (0.00-0.02); Immature Granulocytes % (auto) 0.2 %; Lymphocytes # (auto) 1.65 K/uL (1.2-3.4); Lymphocytes % (auto) 26.6 %; Mean Corpuscular Hemoglobin 29.7 pg (25-34); Mean Corpuscular Volume 87.3 fL (80-100); Mean Platelet Volume 10.4 fL (7.4-10.4); Monocytes # (auto) 0.75 K/uL (0.11-0.59); Monocytes % (auto) 12.1 %; Neutrophils # (auto) 3.23 K/uL (1.4-6.5); Neutrophils % (auto) 51.9 %; Platelet Count 204 K/uL (130-400); RDW Coefficient of Variation 13.2 % (11.5-14.5); RDW Standard Deviation 42.4 fL (36.4-46.3); Red Blood Count 4.88 M/uL (4.7-6.1); White Blood Count 6.21 K/uL (4.8-10.8)
[2021-04-18 00:06] LABS: Partial Thromboplastin Ratio 0.9; Partial Thromboplastin Time 24.5 Seconds (21.0-31.0); Prothrombin Time 10.1 Seconds (9.0-12.0)
[2021-04-18 00:18] LABS: BUN Creatinine Ratio 16.7 (10-20); Calcium 8.6 mg/dl (8.5-10.1); Creatinine Clr Calc Pharmacy 88.5 ml/min; Est GFR (Non-African American) 85.4 ml/min
[2021-04-18] MEDS ORDERED: ALUMINUM/MAGNESIUM SUSP 30 ML UDC PO PRN (02:47)
[2021-04-18] MEDS ORDERED: LORazepam 0.5 MG TAB PO PRN (02:47)
[2021-04-18] MEDS ORDERED: SOD PHOSPHATE/SOD BIPHOSPHATE ENEMA 132 ML BTL PR PRN (02:47)
[2021-04-18] MEDS ORDERED: ACETAMINOPHEN 1,000 MG/100 ML VIAL IV PRN (02:47)
[2021-04-18] MEDS ORDERED: NALOXONE HCL 0.4 MG/1 ML VIAL/CARP IV PRN (02:47)
[2021-04-18] MEDS ORDERED: HYDROmorphone INJ 0.5 MG/0.5 ML SYR IV PRN (02:47)
[2021-04-18] MEDS ORDERED: LORazepam 0.5 MG/1 ML VIAL IV PRN (02:47)
[2021-04-18] MEDS ORDERED: PROMETHAZINE HCL 12.5 MG in SODIUM CHLORIDE 0.9% 50 ML IV PRN (02:47)
[2021-04-18] MEDS ORDERED: ONDANSETRON INJ 2 MG/ML 2 ML VIAL IV PRN (02:47)
[2021-04-18] MEDS ORDERED: ACETAMINOPHEN 500 MG TAB PO PRN (02:47)
[2021-04-18] MEDS ORDERED: diphenhydrAMINE Capsule 25 MG CAP PO PRN (02:47)
[2021-04-18] MEDS ORDERED: MAGNESIUM HYDROXIDE SUSP 30 ML UDC PO PRN (02:47)
[2021-04-18] MEDS ORDERED: hydrOXYzine HCl 25 MG TAB PO PRN (02:47)
[2021-04-18] MEDS ORDERED: ONDANSETRON 4 MG OD TAB PO PRN (02:47)
[2021-04-18] MEDS ORDERED: METOCLOPRAMIDE HCL INJ 5 MG/ML 2 ML VIAL IV PRN (02:47)
[2021-04-18] MEDS ORDERED: HYDROmorphone INJ 1 MG/ML SYRINGE IV PRN (02:47)
[2021-04-18] MEDS: LACTATED RINGER'S 1,000 ML IV SCH ×2 (03:07→15:45)
[2021-04-18] MEDS ORDERED: ceFAZolin 2000MG 2,000 MG/15 ML SYR IV SCH (06:00)
--- NOTE | 2021-04-18 08:39 | Hospitalist Consultation ---
Date of Consultation April 18, 2021 Assessment & Plan (1) Intractable low back pain: (2) Left lumbar radiculopathy: - Pain management, bowel regimen and DVT ppx per the primary team - PT/OT consults after surgical procedure - Follow am CBC to monitor for acute blood loss, current hgb is 14.5 - EKG to be obtained - CXR to be obtained -Covid is negative on admission (3) Aortic aneurysm: - Hx of measuring 3.8 cm per pt, I cannot obtain find other imaging studies which either confirm or deny this information -Patient previously on Xarelto for history of DVT/PE which seemed to be provoked, he has not been on this medication for about 2 years now. (4) Deep vein thrombosis: -Occurred in December 2018 s/p right knee injury prior to TKA (5) Pulmonary embolism: -Occurred in December 2018 s/p right knee injury prior to TKA. (6) Sleep apnea: -Continue CPAP (7) Tremor: -Continue propranolol - Noted alcohol use of 3-4 beers daily, will order WASS to monitor. Last drink was last evening. DVT PPx - teds, scds CODE: Full code- discussed with pt at bedside Dispo: From home, likely to remain in the hospital x 1-2 days Thank you for involving us in the care of Mr. Hercules. Please do not hesitate to call with questions or concerns. At this time medicine service will follow along. Supervising Physician Co-Signing Physician Notes Attending addendum: The patient was seen and examined in medical floor He has been complaining of back pain with radiation to the left leg since July and has had multiple injection and physical therapy without any improvement He has severe lumbar disc protrusion at L L4-L5 and stenosis involving L5-S1 and he will go for surgery either today or tomorrow Has been feeling much better since admission and denies any significant pain at rest On examination Lying in bed comfortably Hemodynamically stable Chestclear to auscultate bilaterally HeartS1, S2 regular and no murmur Abdomenbenign Extremitiesno edema His admission labs, EKG and imaging studies reviewed There is no contraindication for proposed surgery with severe back pain with radiculopathy and spinal stenosis Agree with assessment and plan as outlined above by KOBE Mohamud Dr History of Present Illness Reason for Consultation: Medical management Requesting Physician: Dr. Diez Attending Physician: Tushar Diez, DO History of Present Illness This is a 70-year-old male with PMHx of AAA, hx of DVT and PE in 2019 secondary to knee injury and s/p R TKA, sleep apnea on cpap, osteoarthritis, fine tremor on propranolol. Pt presents to the ER with history of lumbar disc herniation last night and left side pain radiating down the left leg for over a month. Pain has been stabbing in nature, worse when standing better when he sits down, rates it as a 9/10 at its worst. Currently is well managed after getting pain medications in the ER. Denies any associated numbness, bladder or bowel incontinence. He has been followed by pain management. Previously the patient received a spinal injection approximately 3 weeks ago however notes this seemed to make his pain worse versus better. The patient was prescribed oxycodone however reports he has not taken it as it does not seem to help the pain, and has not been taking any OTC medications. He last ate on 04/17 around 830 pm. He has not taken any of his morning medications yet today. SHx: History of smoking from age 13 until mid 50s, 1 pack/day, quit approximately 20 years ago, drinks 3-4 beers daily. Patient denies that he drinks due to dependence and that this improves his tremor at home. FHx: Pt reports hx of father having blood clots in his late 80s, and brother having DVT. Pt is unsure if these events were provoked or not. 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 2/2 inmobility in setting of knee injury; currently on xarelto Osteoarthritis Pulmonary embolism 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 2/2 inmobility in setting of knee injury; currently on xarelto Sleep apnea CPAP Tremor on propranolol Surgical History History of appendectomy History of arthroscopy of right knee History of colonoscopy History of tonsillectomy Status post right knee replacement Family History Father Family history of cancer Brother Family history of cancer Social History Smoking Status: Never smoker Second Hand Exposure: No; Do You Dip or Chew Tobacco: Yes (Daily); Tobacco Cessation Education Requested by Patient: No Hx Alcohol Use: Yes Alcohol type: beer Hx Substance Use: No Preferred Language: Nigerian Communication Ability: Effective Eight Section Blower Required: No Beliefs That Will Affect Care: None Current Living Situation: Spouse Other Information That Helps Us Care for You: No Feels Safe at Home: Yes Safety Concerns: Feels Safe At This Time Assistive Devices: CPAP, Crutches, Denture - Upper, Glasses and Hearing Aid - Bilateral Review of Systems Review of Systems: Constitutional: No fever, sweats or chills Eyes: No diplopia, no worsening or blurred vision ENT: normal hearing, no trouble swallowing Respiratory: No cough, sputum, dyspnea at rest or on exertion Cardiovascular: No chest pain, tightness or palpitations Abdomen: No pain, nausea, vomiting, diarrhea or constipation Back: Left low back/left gluteal pain radiating down into the posterior left leg to the left calf muscle. Musculoskeletal: No joint pain, calf pain, swelling Neurologic: No weakness, numbness/tingling, or balance problems Psychiatric: No anxiety or depression Skin: No rash or itch Physical Exam Physical Exam: General: awake, alert, no apparent distress Head: Normocephalic, atraumatic ENT: PERRL, EOMI, no pharyngeal exudate, mucous membranes moist Chest: Clear to auscultation, on room air, no adventitious breath sounds Cardiac: Regular rate and rhythm, no murmur, no JVD, normal peripheral pulses, good capillary refill Abdominal: NABS x 4 quadrants, soft, nondistended, nontender to palpation, no rebound or guarding Extremities: Normal inspection, no peripheral edema or erythema, calfs nontender to palpation Psych: Normal mood and affect Neuro: AAO x 3, strength intact, 4/5 with left leg raise and left plantar flexion, also notes increased pain with these movements in the left posterior leg and low back,no motor deficits, + fine intentional tremor, speech is clear, no peripheral sensory deficits Results & Data Results & Data ([facility]) Vital Signs (Past 12 Hours) Vital Signs Pulse Resp BP Pulse Ox 04/18/21 06:19 57 L 20 146/85 H 95 04/18/21 04:53 53 L 20 127/72 96 04/18/21 03:07 57 L 20 139/84 96 04/18/21 02:50 56 L 20 134/62 93 04/18/21 02:43 56 L 20 134/62 93 04/18/21 01:10 57 L 20 117/67 98 04/17/21 23:34 59 L 20 144/78 H 94 Laboratory Results 04/17/21 04/17/21 04/17/21 23:40 23:40 23:40 WBC 6.21 RBC 4.88 Hgb 14.5 Hct 42.6 MCV 87.3 MCH 29.7 MCHC 34.0 RDW Std Deviation 42.4 RDW Coeff of Luis Enrique 13.2 Plt Count 204 MPV 10.4 Immature Gran % (Auto) 0.2 Neut % (Auto) 51.9 Lymph % (Auto) 26.6 [place] % (Auto) 12.1 Eos % (Auto) 8.9 Baso % (Auto) 0.3 Neut # (Auto) 3.23 Lymph # (Auto) 1.65 [place] # (Auto) 0.75 H Eos # (Auto) 0.55 H Baso # (Auto) 0.02 Immature Gran # (Auto) 0.01 PT INR APTT PTT Ratio Sodium 141 Potassium 4.0 Chloride 107 Carbon Dioxide 26 Anion Gap 8.0 BUN 15 Creatinine 0.89 Est Cr Clr Drug Dosing 88.5 Est GFR ( Amer) 99.0 Est GFR (Non-Af Amer) 85.4 BUN/Creatinine Ratio 16.7 Glucose 96 Calcium 8.6 SARS-CoV-2, RNA, NAAT NEGATIVE 04/17/21 23:40 WBC RBC Hgb Hct MCV MCH MCHC RDW Std Deviation RDW Coeff of Luis Enrique Plt Count MPV Immature Gran % (Auto) Neut % (Auto) Lymph % (Auto) [place] % (Auto) Eos % (Auto) Baso % (Auto) Neut # (Auto) Lymph # (Auto) [place] # (Auto) Eos # (Auto) Baso # (Auto) Immature Gran # (Auto) PT 10.1 INR 1.0 APTT 24.5 PTT Ratio 0.9 Sodium Potassium Chloride Carbon Dioxide Anion Gap BUN Creatinine Est Cr Clr Drug Dosing Est GFR ( Amer) Est GFR (Non-Af Amer) BUN/Creatinine Ratio Glucose Calcium SARS-CoV-2, RNA, NAAT Diagnostic Findings Lumbar Spine X-Ray 04/17/21 20:20 XR lumbar spine 2-3V CLINICAL HISTORY: pain eval for fx TECHNIQUE: 3 views of the lumbar spine were obtained. Comparison: None available at the time of this dictation. FINDINGS: No fractures or subluxations are identified. A sclerotic lesion in the superior vertebral body of L2 likely represents a Schmorl's node or bone island. Degenerative changes are seen in the lumbar spine. Alignment appears unremarkable. IMPRESSION: Degenerative changes as above without acute fracture or subluxation. ACT 112: Negative or not required by law. Electronically signed by: Spencer Echols M.D. 04/18/2021 8:53 AM
--- NOTE | 2021-04-18 08:48 | History & Physical Report ---
Date of Service April 18, 2021 Assessment & Plan (1) Lumbar disc herniation with radiculopathy: Plan: Assessment lumbar spinal stenosis with herniated nucleus pulposus and radiculopathy. Plan patient does have an MRI dated 04/11/2021 performed at [facility]. It demonstrates massive foraminal far lateral disc herniation L4-5 on the left with severe neuroforaminal stenosis L5-S1 on the left. His MRI findings are consistent with his complaints and clinical exam. At this time in light of his progressive neuro deficits severe pain and failed nonoperative care I am recommending urgent lumbar decompression and fusion L4-5 L5-S1. Risk benefits pros cons alternatives were outlined in detail. Admission and Anticipated Discharge Date Admission Date: April 17, 2021 History of Present Illness Chief Complaint: Back and left leg pain with weakness Primary Care Provider: Melany Bar MD This is a 70-year-old male that side over a month of severe left leg radiculopathy. Describes involving left buttock posterior thigh extending to the anterior tibia and occasionally into the foot. The right lower extremity is asymptomatic. He is undergone 1 epidural injection which seemed to exacerbate his radiculopathy. He has tried [id number] as well as narcotic pain medications to no avail. He is markedly uncomfortable. Notes significant weakness to left lower extremity when ambulating. Describes his pain as a 9 out of 10. Denies any loss of bowel bladder function. 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 2/2 inmobility in setting of knee injury; currently on xarelto Osteoarthritis Pulmonary embolism 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 2/2 inmobility in setting of knee injury; currently on xarelto Sleep apnea CPAP Tremor on propranolol Surgical History History of appendectomy History of arthroscopy of right knee History of colonoscopy History of tonsillectomy Status post right knee replacement Family History Father Family history of cancer Brother Family history of cancer Social History Smoking Status: Never smoker Second Hand Exposure: No; Hx Alcohol Use: Yes Alcohol type: beer Hx Substance Use: No Preferred Language: Turkish Communication Ability: Effective Social Service Worker Required: No Beliefs That Will Affect Care: None Current Living Situation: Alone Feels Safe at Home: Yes Assistive Devices: Walker Physical Exam Physical Exam: On exam the patient is in obvious distress. He exhibits significant tension signs with straight leg raising on the left with negative on the right. Sensory appears to be symmetric and intact. There is diminished deep tendon reflexes to lower extremity. He does exhibit plus 5 out of 5 right sided extensor hallucis longus plantar flexion dorsiflexion quadriceps. The left he is a 4 - quadricep with a 3+ left dorsiflexion extensor pollicis longus. Results & Data ([facility]) Vital Signs (Past 12 Hours) Vital Signs Pulse Resp BP Pulse Ox 04/18/21 06:19 57 L 20 146/85 H 95 04/18/21 04:53 53 L 20 127/72 96 04/18/21 03:07 57 L 20 139/84 96 04/18/21 02:50 56 L 20 134/62 93 04/18/21 02:43 56 L 20 134/62 93 04/18/21 01:10 57 L 20 117/67 98 04/17/21 23:34 59 L 20 144/78 H 94 Code Status & VTE Plan VTE Prophylaxis Plan VTE Prophylaxis will be ordered: Yes
--- NOTE | 2021-04-18 08:54 | XRay Report ---
XR lumbar spine 2-3V CLINICAL HISTORY: pain eval for fx TECHNIQUE: 3 views of the lumbar spine were obtained. Comparison: None available at the time of this dictation. FINDINGS: No fractures or subluxations are identified. A sclerotic lesion in the superior vertebral body of L2 likely represents a Schmorl's node or bone island. Degenerative changes are seen in the lumbar spine. Alignment appears unremarkable. IMPRESSION: Degenerative changes as above without acute fracture or subluxation. ACT 112: Negative or not required by law. Electronically signed by: Spencer Echols M.D. 04/18/2021 8:53 AM
--- NOTE | 2021-04-18 10:00 | XRay Report ---
XR chest 1V portable CLINICAL HISTORY: preop TECHNIQUE: Single frontal radiograph of the chest was obtained. Comparison: Comparison is made to chest one view 08/26/2018 FINDINGS: No lines and tubes are seen. The cardiomediastinal silhouette is normal. The lungs are clear. No evid ence of pleural effusion or pneumothorax. IMPRESSION: No acute chest disease. ACT 112: Negative or not required by law. Electronically signed by: Spencer Echols M.D. 04/18/2021 9:59 AM
--- NOTE | 2021-04-18 10:06 | Anesthesiology Consultation ---
Date of Service April 18, 2021 Assessment & Plan Chart Review Chart Review: Acceptable Risk for Surgery and Patient NOT seen in Pre Admission Testing Consults Requested none ASA ASA3 Proposed Anesthesia Anesthesia Type: General History Surgery Operation Date: 04/18/21 11:25 Proposed Procedures p L4-L5, L5-S1 Decompression Fusion - Tushar Diez DO Height/Weight Height: 5 ft 11 in Weight: 95.6 kg Allergies Allergy/AdvReac Type Severity Reaction Status Date / Time latex Allergy Intermediate Rash Verified 04/17/21 21:46 neoprene Allergy Intermediate Rash Uncoded 04/17/21 21:46 Medications Home Medications Medication Instructions Recorded Confirmed Last Taken propranolol 60 mg capsule,24 60 mg PO QAM 08/22/18 04/17/21 04/16/21 hr,extended release Active Medications Generic Name Dose Route Start Last Admin Trade Name Freq PRN Reason Stop Dose Admin Lactated Ringer's 1,000 mls @ 75 mls/hr 04/18/21 02:47 04/18/21 03:07 Lr IV 05/18/21 02:46 75 mls/hr .[id number] GIOVANNA Administration Past Medical History Medical History Aortic aneurysm PCP monitoring with annual imaging (3.8 cm per patient and stable x years) Deep vein thrombosis 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 2/2 inmobility in setting of knee injury; currently on xarelto Osteoarthritis Pulmonary embolism 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 2/2 inmobility in setting of knee injury; currently on xarelto Sleep apnea CPAP Tremor on propranolol Exercise / Class Metabolic Activity III < 4 Walking/Shop/Light housework Past Family History Family History Father Family history of cancer Brother Family history of cancer Past Surgical History Surgical History History of appendectomy History of arthroscopy of right knee History of colonoscopy History of tonsillectomy Status post right knee replacement Past Anesthesia History No Hx of Anesthesia Complications and No Family Hx of Anesthesia Complications History of PONV No Hx of PONV and No Hx of Motion Sickness Social History Smoking Status: Never smoker tobacco type: cigarettes Hx Alcohol Use: Yes Alcohol type: beer alcohol intake frequency: other Hx Substance Use: No substance use type: does not use Physical Exam Vital Signs Last Vital Signs Temp 36.6 C 04/17/21 18:52 Pulse 57 L 04/18/21 06:19 Resp 20 04/18/21 06:19 BP 146/85 H 04/18/21 06:19 Pulse Ox 95 04/18/21 06:19 Testing Laboratory Results 04/17/21 23:40 04/17/21 23:40 PT 10.1 Seconds (9.0-12.0) 04/17/21 23:40 INR 1.0 (0.9-1.1) 04/17/21 23:40 APTT 24.5 Seconds (21.0-31.0) 04/17/21 23:40 Electrocardiogram Date: 04/18/21 Findings: + SB @ (at 52) Chest X-Ray Date: 04/18/21 Findings: + NAD
[2021-04-18] MEDS: PROPRANOLOL HCL 60 MG LA CAP PO SCH (10:27)
--- NOTE | 2021-04-18 15:59 | Electrocardiogram Report ---
Test Reason : Blood Pressure : / mmHG Vent. Rate : 052 BPM Atrial Rate : 052 BPM P-R Int : 170 ms QRS Dur : 098 ms QT Int : 450 ms P-R-T Axes : 053 024 059 degrees QTc Int : 418 ms Sinus bradycardia Otherwise normal ECG When compared with ECG of 26-AUG-2018 11:00, No significant change was found Confirmed by Butch Bruce ([id number]) on 04/18/2021 3:59:00 PM Referred By: REFERRED SELF Confirmed By:Butch Bruce
[2021-04-19] MEDS: LACTATED RINGER'S 1,000 ML IV SCH ×3 (05:14→17:31)
[2021-04-19] MEDS ORDERED: EPINEPHrine INJ 1 MG/ML AMP ONE (06:58)
[2021-04-19] MEDS ORDERED: BUPIVACAINE 0.5 % 5 MG/1 ML MPF 30ML VIAL ONE (06:58)
[2021-04-19] MEDS ORDERED: NEOSTIGMINE METHYLSULFATE 1 MG/ML 10ML VIAL ONE (06:59)
[2021-04-19] MEDS ORDERED: LIDOCAINE 2% 2 ML VIAL/AMP(20MG/ML) INFIL ONE (06:59)
[2021-04-19] MEDS ORDERED: DEXAMETHASONE SOD INJ 4 MG/ML VIAL ONE (06:59)
[2021-04-19] MEDS ORDERED: MIDAZOLAM HCL 1 MG/ML 2ML VIAL ONE (06:59)
[2021-04-19] MEDS ORDERED: GLYCOPYRROLATE 0.2 MG/ML VIAL ONE ×2 (06:59→09:09)
[2021-04-19] MEDS ORDERED: fentaNYL citrate 100 MCG/2 ML VIAL ONE (06:59)
[2021-04-19] MEDS ORDERED: ONDANSETRON INJ 2 MG/ML 2 ML VIAL ONE ×2 (06:59→09:09)
[2021-04-19] MEDS ORDERED: PROPOFOL IV EMULSION 10 MG/ML 20 ML VIAL IV ONE (06:59)
[2021-04-19] MEDS ORDERED: HYDROmorphone INJ 2 MG/ML SYR/VIAL ONE (07:01)
[2021-04-19] MEDS ORDERED: ROCURONIUM BROMIDE 10 MG/ML 5 ML VIAL IV ONE ×3 (07:01→10:03)
[2021-04-19] MEDS ORDERED: SODIUM CHLORIDE 0.9% INJ 10 ML VIAL ONE (07:01)
[2021-04-19] MEDS ORDERED: LARYING-O-JET KIT (LTA) ONE (07:01)
--- NOTE | 2021-04-19 08:09 | History & Physical Bridge Note ---
Date of Service April 19, 2021 History & Physical Bridge Note I have examined the patient, reviewed the History & Physical and in the interval since the performance of the History & Physical I have noted the following changes of clinical significance: no changes noted Lumbar decompression fusion L4-5 L5-S1
[2021-04-19] MEDS ORDERED: ONDANSETRON INJ 2 MG/ML 2 ML VIAL IV PRN ×2 (08:27→11:38)
[2021-04-19] MEDS ORDERED: HYDROmorphone INJ 1 MG/ML SYRINGE IV PRN ×2 (08:27→11:38)
[2021-04-19] MEDS ORDERED: ATROPINE SULFATE 0.1 MG/ML 10ML SYR IV PRN (08:27)
[2021-04-19] MEDS ORDERED: ePHEDrine sulfate 50 MG/ML AMP IV PRN (08:27)
[2021-04-19] MEDS ORDERED: fentaNYL citrate 100 MCG/2 ML VIAL IV PRN (08:27)
[2021-04-19] MEDS ORDERED: FLOSEAL HEMOSTATIC MATRIX 10ML TOP ONE (09:54)
[2021-04-19] MEDS ORDERED: ePHEDrine sulfate 50 MG/ML SYR ONE (10:03)
--- NOTE | 2021-04-19 10:30 | Operative Report ---
Post Operative Report Pre & Post Diagnosis Operation Date: 04/18/21 11:25 <No data on this case meets the specified criteria> Operation Date: 04/19/21 07:00 Pre-Op Diagnosis: Lumbar spinal stenosis with foraminal disc herniation Post-Op Diagnosis: Same I identified the patient and participated in the time-out.: Yes Procedure Operation Date: 04/18/21 11:25 <No data on this case meets the specified criteria> Operation Date: 04/19/21 07:00 Actual Procedures #1 lumbar decompression bilateral medial facetectomies and foraminotomies L3-4, L4-5 and L5-S1. #2 posterior spinal fusion L4-5 L5-S1. #3 placement posterior instrumentation L4-5 L5-S1. #4 interbody fusion L4-5 L5-S1. #5 placement of ti tanium interbody cage 12 x 26 mm at L4-L5 and 11 x 26 mm at L5-S1. #6 placement locally harvested morselized autograft in the posterior gutters. #7 placement infuse collagen sponge, and master graft in the posterior lateral gutters and I factor interbody space. Surgeon Tushar Diez, Ingot Supervisor Natalee De La Paz Estimated Blood Loss 200 Findings Consistent with Post-Op Diagnosis Specimens None Indications This is a 70-year-old male presents with significant decline in status with severe radiculopathy and neuro deficit and is here for urgent decompression fusion. Description of Procedure Patient was met with identified informed consent obtained. Patient was then taken to the operative suite underwent ablation placed in a prone position on Sunny table top Guillermo frame. All bony prominences well-padded eyes inspected to ensure no external pressure placed upon the. This point the lumbar spine was prepped and draped in normal sterile fashion. Sharp dissection with the assistance of Bovie cautery was performed down to and exposing the lamina and transverse processes of L4-L5 and sacral ala bilaterally. From caudal cephalad fashion complete laminectomy L5 L4 partial laminectomy of L3 was performed including bilateral medial facetectomies foraminotomies addressing all lateral recess and foraminal stenosis. This did include the resection of the far lateral discrimination at L4-5 on the left which was creating severe neural compression. After decompression pedicle screws were placed in L4-L5 and S1 levels bilaterally with assistance of fluoroscopy and the properly sized latricia placed. By way of a transforaminal approach on the left complete discectomy of of L5-S1 was performed endplates curetted to subcortically bone and a 11 x 26 mm titanium cage filled with I factor tapped in position. Then proceeded L4-L5 and again by way of a transforaminal approach and left complete discectomy performed endplates curetted to subcortically bone and a 12 x 26 mm titanium cage filled I factor tapped in position. The rods were then compressed locked in final position bilaterally. The transverse processes of L 4 L5 and sacral ala burred to subcortical bleeding bone. Infuse collagen sponge master graft local autograft was placed in the posterior gutters. 15 round GILLES drain inserted. The incision was then closed with 1 Vicryl the fascia 2-0 Vicryl subcutaneously and 4 Monocryl for final skin closure. Steri-Strip sterile dressing was placed. Patient will continue PACU stable condition. Please note spinal cord monitoring was utilized at the procedure no changes noted. Lastly Natalee De La Paz was present at the entire surgery involved in patient positioning complex portions of the surgery and fascial closure. I attest to the content of the Intraoperative Record and any orders documented therein. Any exceptions are noted below.
--- NOTE | 2021-04-19 10:44 | Fluoroscopy Report ---
FL lumbar spine 2-3V CLINICAL HISTORY: L4-L5, L5-S1 DECOMP/FUSION COMPARISON STUDY: 04/17/2021 FLUOROSCOPY TIME: 22 seconds. FLUOROSCOPIC IMAGES: 2 FINDINGS: The patient is status post interpedicular screw and latricia fixation from L4 through S1 with di sc spacers in place. IMPRESSION: Status post internal fixation. ACT 112: Negative or not required by law. Electronically signed by: Melecio Ortiz M.D. 04/19/2021 10:43 AM
[2021-04-19] MEDS ORDERED: ONDANSETRON 4 MG OD TAB PO PRN (11:38)
[2021-04-19] MEDS ORDERED: LORazepam 0.5 MG/1 ML VIAL IV PRN (11:38)
[2021-04-19] MEDS ORDERED: oxyCODONE HCL IR 5 MG TAB (IMMEDIATE RELEASE) PO PRN (11:38)
[2021-04-19] MEDS ORDERED: NALOXONE HCL 0.4 MG/1 ML VIAL/CARP IV PRN (11:38)
[2021-04-19] MEDS ORDERED: ACETAMINOPHEN 1,000 MG/100 ML VIAL IV PRN (11:38)
[2021-04-19] MEDS ORDERED: ACETAMINOPHEN 500 MG TAB PO PRN (11:38)
[2021-04-19] MEDS ORDERED: hydrOXYzine HCl 25 MG TAB PO PRN (11:38)
[2021-04-19] MEDS ORDERED: DO NOT ADMINISTER PNEUMOCOCCAL VACCINE PRN (11:38)
[2021-04-19] MEDS ORDERED: MAGNESIUM HYDROXIDE SUSP 30 ML UDC PO PRN (11:38)
[2021-04-19] MEDS ORDERED: LORazepam 0.5 MG TAB PO PRN (11:38)
[2021-04-19] MEDS ORDERED: ALUMINUM/MAGNESIUM SUSP 30 ML UDC PO PRN (11:38)
[2021-04-19] MEDS ORDERED: DO NOT ADMINISTER FLU VACCINE PRN (11:38)
[2021-04-19] MEDS ORDERED: FAMOTIDINE 20 MG TAB PO PRN (11:38)
[2021-04-19] MEDS ORDERED: HYDROmorphone INJ 0.5 MG/0.5 ML SYR IV PRN (11:38)
[2021-04-19] MEDS ORDERED: diphenhydrAMINE Capsule 25 MG CAP PO PRN (11:38)
[2021-04-19] MEDS ORDERED: METOCLOPRAMIDE HCL INJ 5 MG/ML 2 ML VIAL IV PRN (11:38)
[2021-04-19] MEDS ORDERED: bisacodyL 10 MG SUPP PR PRN ×2 (11:38→23:28)
[2021-04-19] MEDS ORDERED: SOD PHOSPHATE/SOD BIPHOSPHATE ENEMA 132 ML BTL PR PRN (11:38)
[2021-04-19] MEDS ORDERED: PROMETHAZINE HCL 12.5 MG in SODIUM CHLORIDE 0.9% 50 ML IV PRN (11:38)
[2021-04-19] MEDS ORDERED: traMADol HCL 50 MG TABLET PO PRN (11:38)
[2021-04-19] MEDS: PROPRANOLOL HCL 60 MG LA CAP PO SCH (11:59)
--- NOTE | 2021-04-19 12:15 | Anesthesiology Progress Note ---
Date of Service April 19, 2021 Anesthesia Post Procedure Vital Signs Vital Signs: Temp Pulse Pulse Resp BP BP Pulse Ox 04/19/21 11:40 97.5 F L 52 L 18 156/86 H 94 04/19/21 11:25 54 L 12 153/87 H 95 04/19/21 11:15 97.0 F L 59 L 14 157/84 H 95 04/19/21 11:05 64 12 120/87 95 04/19/21 10:55 66 12 121/94 96 04/19/21 10:46 97.0 F L 78 16 165/85 H 97 04/19/21 07:58 98.4 F 57 L 18 138/82 93 04/19/21 07:11 98.1 F 50 L 16 139/65 94 04/18/21 22:21 97.9 F 60 16 152/76 H 96 04/18/21 19:30 97.9 F 58 L 18 150/86 H 95 04/18/21 15:20 97.7 F 62 14 118/69 95 04/18/21 12:24 98.2 F 56 L 18 133/71 94 Pain Intensity Left Leg: Pain Intensity: 2 Transfer of Care Handoff Completed per policy Notes Mental Status: alert / awake / arousable and participated in evaluation Patient Amnestic to Procedure: Yes Nausea / Vomiting: adequately controlled Pain: adequately controlled Airway Patency, RR, SpO2: stable & adequate BP & HR: stable & adequate Hydration State: stable & adequate Anesthetic Complications: no major complications apparent and Pt Satisfied with anesthetic care
--- NOTE | 2021-04-19 12:48 | Hospitalist Progress Note ---
Date of Service April 19, 2021 Assessment & Plan (1) Intractable low back pain: (2) Left lumbar radiculopathy: Plan: S/PActual Procedures #1 lumbar decompression bilateral medial facetectomies and foraminotomies L3-4, L4-5 and L5-S1. #2 posterior spinal fusion L4-5 L5-S1. #3 placement posterior instrumentation L4-5 L5-S1. #4 interbody fusion L4-5 L5-S1. #5 placement of titanium interbody cage 12 x 26 mm at L4-L5 and 11 x 26 mm at L5-S1. #6 placement locally harvested morselized autograft in the posterior gutters. #7 placement infuse collagen sponge, and master graft in the posterior lateral gutters and I factor interbody space. POD#0 ebl 200ml; GILLES drain in place tolerated procedure well Pain management, bowel regimen and DVT ppx per the primary team PT/OT consults after surgical procedure monitor hgb, pre op 14.5 (3) Aortic aneurysm: Plan: Hx of measuring 3.8 cm per pt Patient previously on Xarelto for history of DVT/PE which seemed to be provoked, he has not been on this medication for about 2 years now (4) Deep vein thrombosis: Plan: Occurred in December 2018 s/p right knee injury prior to TKA (5) Pulmonary embolism: Plan: Occurred in December 2018 s/p right knee injury prior to TKA (6) Sleep apnea: Plan: Continue CPAP (7) Tremor: Plan: Continue propranolol Noted alcohol use of 3-4 beers daily, will order WASS to monitor. no s/sx of withdrawal DVT PPx: SCD/TEDS FULL CODE Patient was seen and examined in collaboration with Dr. Akins, please see addendum Thank you for this consultation. We will follow the patient with you during their hospital stay. You can reach a member of the [facility] Hospitalist Team 04/12 via hospitalist role on [employer]. The chart was completed utilizing [employer] Speech voice recognition software. Grammatical errors, random word insertions, pronoun errors, and incomplete sentences are an occasional consequence of this system due to software limitations, ambient noise, and hardware issues. Any formal questions or concerns about the content, text, or information contained within the body of this dictation should be directly addressed to the provider for clarification.. Admission and Anticipated Discharge Date Admission Date: April 17, 2021 Subjective Pt was seen and examined in room 312. He is s/p back surgery. Overall he feels well. Denies pain, f/c/s, cp, sob, n/v/d, abd pain. No acute concerns. Review of Systems Review of Systems: All systems reviewed & are unremarkable except as noted in HPI & below Physical Exam Physical Exam: Gen: WD/WN, M, sitting up in bed, NAD, A&O x3 HEENT: Normocephalic, atraumatic, conjunctivae moist, sclerae anicteric, mucous membranes moist. Lung: Clear to Auscultation bilaterally, no wheezes/rales/rhonchi Heart: bradycardic rate, regular rhythm, no murmurs, rubs, or gallops Abdomen: Soft, NT, ND +BS x 4 Extremities: No edema Skin: Warm, no rash, negative turgor. : uribe draining clear yellow urine Results & Data Results & Data ([facility]) Vital Signs (Past 12 Hours) Vital Signs Temp Pulse Pulse Resp BP Pulse Ox 04/19/21 12:37 65 16 156/88 H 91 04/19/21 12:14 36.3 C L 54 L 16 138/76 95 04/19/21 11:40 36.4 C L 52 L 18 156/86 H 94 04/19/21 11:25 54 L 12 153/87 H 95 04/19/21 11:15 36.1 C L 59 L 14 157/84 H 95 04/19/21 11:05 64 12 120/87 95 04/19/21 10:55 66 12 121/94 96 04/19/21 10:46 36.1 C L 78 16 165/85 H 97 04/19/21 07:58 36.9 C 57 L 18 138/82 93 04/19/21 07:11 36.7 C 50 L 16 139/65 94 Diagnostic Findings Lumbar Spine X-Ray 04/19/21 07:10 FL lumbar spine 2-3V CLINICAL HISTORY: L4-L5, L5-S1 DECOMP/FUSION COMPARISON STUDY: 04/17/2021 FLUOROSCOPY TIME: 22 seconds. FLUOROSCOPIC IMAGES: 2 FINDINGS: The patient is status post interpedicular screw and latricia fixation from L4 through S1 with disc spacers in place. IMPRESSION: Status post internal fixation. ACT 112: Negative or not required by law. Electronically signed by: Melecio Ortiz M.D. 04/19/2021 10:43 AM Medications Administered Current Inpatient Medications Acetaminophen (Acetaminophen 500 Mg Tab) 1,000 mg PO Q8H PRN PRN Reason: MILD Pain Scale 1,2,3 & Pre PT Stop: 05/18/21 02:46 Al Hydrox/Mg Hydrox/Simethicone (Aluminum/Magnesium Susp 30 Ml Udc) 30 ml PO Q6H PRN PRN Reason: Dyspepsia Stop: 05/18/21 02:46 Atropine Sulfate (Atropine Sulfate 0.1 Mg/Ml 10ml Syr) 0.5 mg IV Q1M PRN PRN Reason: PACU Use-HR<40 &/or Bradycardi Stop: 04/19/21 16:27 Bisacodyl (Bisacodyl 10 Mg Supp) 10 mg MD DAILY PRN PRN Reason: Constipation Stop: 05/19/21 23:27 Diphenhydramine HCl (Diphenhydramine Capsule 25 Mg Cap) 25 mg PO Q6H PRN PRN Reason: Allergic Rhinitis/Insomnia Stop: 05/18/21 02:46 Ephedrine Sulfate (Ephedrine Sulfate 50 Mg/Ml Amp) 5 mg IV Q5M PRN PRN Reason: PACU Use Only-SBP<90 mmHg Stop: 04/19/21 16:27 Famotidine (Famotidine 20 Mg Tab) 20 mg PO Q12H PRN PRN Reason: Dyspepsia Stop: 05/19/21 11:37 Fentanyl Citrate (Fentanyl Citrate 100 Mcg/2 Ml Vial) 50 mcg IV Q5M PRN PRN Reason: PACU Use Only-Pain Stop: 04/19/21 16:27 Hydromorphone HCl (Hydromorphone Inj 0.5 Mg/0.5 Ml Syr) 0.5 mg IV Q3H PRN PRN Reason: MOD pain (scale 4-6) & Pre PT Stop: 05/02/21 02:46 Hydromorphone HCl (Hydromorphone Inj 1 Mg/Ml Syringe) 1 mg IV Q3H PRN PRN Reason: severe pain (scale 7-10) Stop: 05/02/21 02:46 Hydromorphone HCl (Hydromorphone Inj 1 Mg/Ml Syringe) 0.25 mg IV Q5M PRN PRN Reason: PACU Use Only-Pain Stop: 04/19/21 16:27 Hydroxyzine HCl (Hydroxyzine Hcl 25 Mg Tab) 25 mg PO Q8H PRN PRN Reason: Anxiety Stop: 05/18/21 02:46 Acetaminophen (Ofirmev) 1,000 mg in 100 mls @ 400 mls/hr IV Q8H PRN PRN Reason: Pain Rating 1-3 & Pre PT Stop: 04/21/21 02:46 Lorazepam (Ativan) 0.5 mg in 1 mls @ 1 mls/min IV Q8H PRN PRN Reason: Sedation/Anxiety Stop: 05/18/21 02:46 Promethazine HCl 12.5 mg/ (Sodium Chloride) 50.5 mls @ 202 mls/hr IV Q6H PRN PRN Reason: Nausea &/or Vomiting Stop: 05/18/21 02:46 Cefazolin Sodium (Ancef 2000mg) 2,000 mg in 15 mls @ 3.75 mls/min IV Q8H GIOVANNA; Protocol Lactated Ringer's (Lr) 1,000 mls @ 150 mls/hr IV .Q6H40M GIOVANNA Stop: 05/19/21 11:37 Last Admin: 04/19/21 12:36 Dose: 150 mls/hr Documented by: Dexamethasone 6 mg/ Syringe 1.5 mls @ 1 mls/min IV DAILY GIOVANNA Stop: 04/22/21 09:02 Influenza Virus Vaccine Quadrival (Do Not Administer Flu Vaccine) 1 ea N/A PRN PRN PRN Reason: Notification Stop: 05/19/21 11:37 Lorazepam (Lorazepam 0.5 Mg Tab) 0.5 mg PO Q8H PRN PRN Reason: sedation/anxiety Stop: 05/18/21 02:46 Magnesium Hydroxide (Magnesium Hydroxide Susp 30 Ml Udc) 30 ml PO Q24H PRN PRN Reason: Constipation Stop: 05/18/21 02:46 Metoclopramide HCl (Metoclopramide Hcl Inj 5 Mg/Ml 2 Ml Vial) 10 mg IV Q6H PRN PRN Reason: Nausea &/or Vomiting Stop: 05/18/21 02:46 Naloxone HCl (Naloxone Hcl 0.4 Mg/1 Ml Vial/Carp) 0.1 mg IV Q5M PRN PRN Reason: Oversedation/respiratory dep Stop: 05/18/21 02:46 Ondansetron HCl (Ondansetron Inj 2 Mg/Ml 2 Ml Vial) 4 mg IV Q6H PRN PRN Reason: Nausea &/or Vomiting Stop: 05/18/21 02:46 Ondansetron HCl (Ondansetron 4 Mg Od Tab) 4 mg PO Q6H PRN PRN Reason: Nausea Stop: 05/18/21 02:46 Ondansetron HCl (Ondansetron Inj 2 Mg/Ml 2 Ml Vial) 4 mg IV ONCE PRN PRN Reason: PACU Use Only-Nausea/Vomiting Stop: 04/19/21 16:27 Oxycodone HCl (Oxycodone Hcl Ir 5 Mg Tab (Immediate Release)) 5 - 10 mg PO Q4H PRN PRN Reason: mod to severe pain Stop: 05/02/21 02:46 Pneumococcal Polyvalent Vaccine (Do Not Administer Pneumococcal Vaccine) 1 ea N/A PRN PRN PRN Reason: Notification Stop: 05/19/21 11:37 Polyethylene Glycol (Polyethylene (Miralax) 17 Gm Pack) 17 gm PO Q6 GIOVANNA Stop: 05/20/21 05:59 Propranolol HCl (Propranolol Hcl 60 Mg La Cap) 60 mg PO QAM GIOVANNA Stop: 05/18/21 08:59 Last Admin: 04/19/21 11:59 Dose: Not Given Documented by: Senna/Docusate Sodium (Docusate Sodium/Senna 50/8.6mg Tab) 2 tab PO HS GIOVANNA Stop: 05/19/21 20:59 Sodium Biphosphate/Sodium Phosphate (Sod Phosphate/Sod Biphosphate Enema 132 Ml Btl) 132 ml MD ONE PRN PRN Reason: Constipation Stop: 05/18/21 02:46 Tramadol HCl (Tramadol Hcl 50 Mg Tablet) 50 - 100 mg PO Q4H PRN PRN Reason: Moderate-Severe pain & Pre PT Stop: 05/19/21 11:37
[2021-04-19] MEDS: ceFAZolin 2000MG 2,000 MG/15 ML SYR IV SCH (17:22)
[2021-04-19] MEDS: DOCUSATE SODIUM/SENNA 50/8.6MG TAB PO SCH (21:37)
[2021-04-19] MEDS: oxyCODONE HCL IR 5 MG TAB (IMMEDIATE RELEASE) PO PRN (21:37)
[2021-04-20] MEDS: ceFAZolin 2000MG 2,000 MG/15 ML SYR IV SCH (00:13)
[2021-04-20] MEDS: POLYETHYLENE (MIRALAX) 17 GM PACK PO SCH ×4 (04:38→23:06)
[2021-04-20 07:23] LABS: Basophils # (auto) 0.01 K/uL (0-0.2); Basophils % (auto) 0.1 %; Eosinophils # (auto) 0.04 K/uL (0-0.5); Eosinophils % (auto) 0.4 %; Hematocrit (blood only) 37.3 % (42-52); Hemoglobin 12.7 g/dL (14.0-18.0); Immature Granulocytes # (auto) 0.01 K/uL (0.00-0.02); Immature Granulocytes % (auto) 0.1 %; Lymphocytes # (auto) 1.38 K/uL (1.2-3.4); Lymphocytes % (auto) 12.5 %; Mean Corpuscular Hemoglobin 29.2 pg (25-34); Mean Corpuscular Volume 85.7 fL (80-100); Mean Platelet Volume 10.8 fL (7.4-10.4); Monocytes # (auto) 1.63 K/uL (0.11-0.59); Monocytes % (auto) 14.7 %; Neutrophils # (auto) 7.99 K/uL (1.4-6.5); Neutrophils % (auto) 72.2 %; Platelet Count 195 K/uL (130-400); RDW Coefficient of Variation 13.2 % (11.5-14.5); RDW Standard Deviation 41.4 fL (36.4-46.3); Red Blood Count 4.35 M/uL (4.7-6.1); White Blood Count 11.06 K/uL (4.8-10.8)
[2021-04-20 08:07] LABS: BUN Creatinine Ratio 13.7 (10-20); Calcium 8.2 mg/dl (8.5-10.1); Creatinine Clr Calc Pharmacy 79.6 ml/min; Est GFR (African American) 87.8 ml/min; Est GFR (Non-African American) 75.8 ml/min; Potassium 3.8 mmol/L (3.5-5.1)
[2021-04-20] MEDS: dexAMETHasone 6 MG in SYRINGE 0 ML IV SCH ×2 (09:13→09:15)
[2021-04-20] MEDS: PROPRANOLOL HCL 60 MG LA CAP PO SCH (09:14)
--- NOTE | 2021-04-20 10:10 | Hospitalist Progress Note ---
Date of Service April 20, 2021 Assessment & Plan (1) Intractable low back pain: (2) Left lumbar radiculopathy: Plan: S/PActual Procedures #1 lumbar decompression bilateral medial facetectomies and foraminotomies L3-4, L4-5 and L5-S1. #2 posterior spinal fusion L4-5 L5-S1. #3 placement posterior instrumentation L4-5 L5-S1. #4 interbody fusion L4-5 L5-S1. #5 placement of titanium interbody cage 12 x 26 mm at L4-L5 and 11 x 26 mm at L5-S1. #6 placement locally harvested morselized autograft in the posterior gutters. #7 placement infuse collagen sponge, and master graft in the posterior lateral gutters and I factor interbody space. 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 no s/sx of withdrawal DVT PPx: SCD/TEDS FULL CODE Patient was seen and examined in collaboration with Dr. Marie, please see addendum Thank you for this consultation. We will follow the patient with you during their hospital stay. You can reach a member of the [facility] Hospitalist Team 04/12 via hospitalist role on tiger text. The chart was completed utilizing [employer] Speech voice recognition software. Grammatical errors, random word insertions, pronoun errors, and incomplete sentences are an occasional consequence of this system due to software limi tations, ambient noise, and hardware issues. Any formal questions or concerns about the content, text, or information contained within the body of this dictation should be directly addressed to the provider for clarification.. Admission and Anticipated Discharge Date Admission Date: April 17, 2021 delayed entry date of service noted above Attending Addendum: care coordinated with BERNADINE Bateman please refer to her notes for full details, I agree with her notes patient seen and examined, records reviewed by myself as well on exam, patient seen resting in chair, comfortable, not in distress mild low back pain no chest pain, dyspnea, palpitations, dizziness no other symptoms VS noted and reviewed oriented x3 , not in distress, speaks in sentences with no effort nor accessory muscle use normal rate, regular rhythm, no murmurs clear breath sounds bilaterally non distended, soft, nontender back- dressing in place, drain in place with serous discharge no bipedal edema, erythema, warmth no neuro deficits WBC 11 Hg 12 ASSESSMENT AND PLAN s/p Back Surgery Mild Acute Blood Loss Anemia -monitor Hg History of PE/DVT - DVT prophylaxis per Ortho [facility] other diagnoses and plan of care as per BERNADINE Rizzo's notes Jf Marie MD Subjective Pt was seen and examined in room 312. He is s/p back surgery. He offers no acute concerns this morning. He complains of incisional back pain. He denies chest pain, shortness of breath, nausea, vomiting, abdominal pain. His appetite is stable. He has Uribe catheter in place. He has not passed flatus. Review of Systems Review of Systems: All systems reviewed & are unremarkable except as noted in HPI & below Physical Exam Physical Exam: Gen: WD/WN, M, sitting up in bed, NAD, A&O x3 HEENT: Normocephalic, atraumatic, conjunctivae moist, sclerae anicteric, mucous membranes moist. Lung: Clear to Auscultation bilaterally, no wheezes/rales/rhonchi Heart: bradycardic rate, regular rhythm, no murmurs, rubs, or gallops Abdomen: Soft, NT, ND +BS x 4 Extremities: No edema Skin: Warm, no rash, negative turgor. : uribe draining clear yellow urine Results & Data Results & Data ([facility]) Vital Signs (Past 12 Hours) Vital Signs Temp Pulse Pulse Resp BP Pulse Ox 04/20/21 08:09 36.7 C 62 20 116/55 L 93 04/20/21 03:22 36.8 C 70 16 123/64 93 04/19/21 23:00 36.7 C 80 18 136/70 96 Laboratory Results Short CBC 04/20/21 Range/Units 06:52 WBC 11.06 H (4.8-10.8) K/uL Hgb 12.7 L (14.0-18.0) g/dL Hct 37.3 L (42-52) % Plt Count 195 (130-400) K/uL BMP 04/20/21 06:52 Sodium 140 Potassium 3.8 Chloride 108 H Carbon Dioxide 25 BUN 14 Creatinine 0.99 Glucose 119 H Calcium 8.2 L Medications Administered Current Inpatient Medications Acetaminophen (Acetaminophen 500 Mg Tab) 1,000 mg PO Q8H PRN PRN Reason: MILD Pain Scale 1,2,3 & Pre PT Stop: 05/18/21 02:46 Last Admin: 04/20/21 04:57 Dose: 1,000 mg Documented by: Al Hydrox/Mg Hydrox/Simethicone (Aluminum/Magnesium Susp 30 Ml Udc) 30 ml PO Q6H PRN PRN Reason: Dyspepsia Stop: 05/18/21 02:46 Bisacodyl (Bisacodyl 10 Mg Supp) 10 mg UT DAILY PRN PRN Reason: Constipation Stop: 05/19/21 23:27 Diphenhydramine HCl (Diphenhydramine Capsule 25 Mg Cap) 25 mg PO Q6H PRN PRN Reason: Allergic Rhinitis/Insomnia Stop: 05/18/21 02:46 Famotidine (Famotidine 20 Mg Tab) 20 mg PO Q12H PRN PRN Reason: Dyspepsia Stop: 05/19/21 11:37 Hydromorphone HCl (Hydromorphone Inj 0.5 Mg/0.5 Ml Syr) 0.5 mg IV Q3H PRN PRN Reason: MOD pain (scale 4-6) & Pre PT Stop: 05/02/21 02:46 Hydromorphone HCl (Hydromorphone Inj 1 Mg/Ml Syringe) 1 mg IV Q3H PRN PRN Reason: severe pain (scale 7-10) Stop: 05/02/21 02:46 Hydroxyzine HCl (Hydroxyzine Hcl 25 Mg Tab) 25 mg PO Q8H PRN PRN Reason: Anxiety Stop: 05/18/21 02:46 Acetaminophen (Ofirmev) 1,000 mg in 100 mls @ 400 mls/hr IV Q8H PRN PRN Reason: Pain Rating 1-3 & Pre PT Stop: 04/21/21 02:46 Lorazepam (Ativan) 0.5 mg in 1 mls @ 1 mls/min IV Q8H PRN PRN Reason: Sedation/Anxiety Stop: 05/18/21 02:46 Promethazine HCl 12.5 mg/ (Sodium Chloride) 50.5 mls @ 202 mls/hr IV Q6H PRN PRN Reason: Nausea &/or Vomiting Stop: 05/18/21 02:46 Cefazolin Sodium (Ancef 2000mg) 2,000 mg in 15 mls @ 3.75 mls/min IV Q8H GIOVANNA; Protocol Last Admin: 04/20/21 00:13 Dose: 3.75 mls/min Documented by: Dexamethasone 6 mg/ Syringe 1.5 mls @ 1 mls/min IV DAILY GIOVANNA Stop: 04/22/21 09:02 Last Admin: 04/20/21 09:15 Dose: Not Given Documented by: Influenza Virus Vaccine Quadrival (Do Not Administer Flu Vaccine) 1 ea N/A PRN PRN PRN Reason: Notification Stop: 05/19/21 11:37 Lorazepam (Lorazepam 0.5 Mg Tab) 0.5 mg PO Q8H PRN PRN Reason: sedation/anxiety Stop: 05/18/21 02:46 Magnesium Hydroxide (Magnesium Hydroxide Susp 30 Ml Udc) 30 ml PO Q24H PRN PRN Reason: Constipation Stop: 05/18/21 02:46 Metoclopramide HCl (Metoclopramide Hcl Inj 5 Mg/Ml 2 Ml Vial) 10 mg IV Q6H PRN PRN Reason: Nausea &/or Vomiting Stop: 05/18/21 02:46 Naloxone HCl (Naloxone Hcl 0.4 Mg/1 Ml Vial/Carp) 0.1 mg IV Q5M PRN PRN Reason: Oversedation/respiratory dep Stop: 05/18/21 02:46 Ondansetron HCl (Ondansetron Inj 2 Mg/Ml 2 Ml Vial) 4 mg IV Q6H PRN PRN Reason: Nausea &/or Vomiting Stop: 05/18/21 02:46 Ondansetron HCl (Ondansetron 4 Mg Od Tab) 4 mg PO Q6H PRN PRN Reason: Nausea Stop: 05/18/21 02:46 Oxycodone HCl (Oxycodone Hcl Ir 5 Mg Tab (Immediate Release)) 5 - 10 mg PO Q4H PRN PRN Reason: mod to severe pain Stop: 05/02/21 02:46 Last Admin: 04/19/21 21:37 Dose: 5 mg Documented by: Pneumococcal Polyvalent Vaccine (Do Not Administer Pneumococcal Vaccine) 1 ea N/A PRN PRN PRN Reason: Notification Stop: 05/19/21 11:37 Polyethylene Glycol (Polyethylene (Miralax) 17 Gm Pack) 17 gm PO Q6 GIOVANNA Stop: 05/20/21 05:59 Last Admin: 04/20/21 04:38 Dose: 17 gm Documented by: Propranolol HCl (Propranolol Hcl 60 Mg La Cap) 60 mg PO QAM GIOVANNA Stop: 05/18/21 08:59 Last Admin: 04/20/21 09:14 Dose: 60 mg Documented by: Senna/Docusate Sodium (Docusate Sodium/Senna 50/8.6mg Tab) 2 tab PO HS GIOVANNA Stop: 05/19/21 20:59 Last Admin: 04/19/21 21:37 Dose: 2 tab Documented by: Sodium Biphosphate/Sodium Phosphate (Sod Phosphate/Sod Biphosphate Enema 132 Ml Btl) 132 ml UT ONE PRN PRN Reason: Constipation Stop: 05/18/21 02:46 Tramadol HCl (Tramadol Hcl 50 Mg Tablet) 50 - 100 mg PO Q4H PRN PRN Reason: Moderate-Severe pain & Pre PT Stop: 05/19/21 11:37
[2021-04-20] MEDS: oxyCODONE HCL IR 5 MG TAB (IMMEDIATE RELEASE) PO PRN ×2 (12:48→21:35)
--- NOTE | 2021-04-20 15:38 | Orthopedic Progress Note ---
Date of Service April 20, 2021 Assessment & Plan (1) Lumbar disc herniation with radiculopathy: Plan: At this time we will continue physical therapy monitor his GILLES output anticipate possible discharge home tomorrow. Admission and Anticipated Discharge Date Admission Date: April 17, 2021 Subjective Back pain controlled leg pain markedly improved Physical Exam Physical Exam: Patient is in the chair at the bedside. Is good strength testing. Appears comfortable. Results & Data ([facility]) Vital Signs (Past 12 Hours) Vital Signs Temp Pulse Resp BP Pulse Ox 04/20/21 15:27 37 C 85 18 128/74 97 04/20/21 08:09 36.7 C 62 20 116/55 L 93
[2021-04-20] MEDS: KETOROLAC TROMETHAMINE 15 MG/ML VIAL IV PRN (16:17)
[2021-04-20] MEDS: DOCUSATE SODIUM/SENNA 50/8.6MG TAB PO SCH (20:23)
[2021-04-21] MEDS: POLYETHYLENE (MIRALAX) 17 GM PACK PO SCH ×3 (05:49→18:44)
[2021-04-21 05:51] LABS: Hematocrit (blood only) 36.9 % (42-52); Hemoglobin 12.4 g/dL (14.0-18.0); Mean Corpuscular Hemoglobin 29.5 pg (25-34); Mean Corpuscular Hgb Conc 33.6 g/dL (32-36); Mean Corpuscular Volume 87.9 fL (80-100); Mean Platelet Volume 10.9 fL (7.4-10.4); Platelet Count 191 K/uL (130-400); RDW Coefficient of Variation 13.4 % (11.5-14.5); RDW Standard Deviation 43.3 fL (36.4-46.3); White Blood Count 12.63 K/uL (4.8-10.8)
[2021-04-21] MEDS: PROPRANOLOL HCL 60 MG LA CAP PO SCH (08:14)
[2021-04-21] MEDS: KETOROLAC TROMETHAMINE 15 MG/ML VIAL IV PRN ×2 (08:23→15:45)
--- NOTE | 2021-04-21 11:21 | Discharge Summary ---
Date of Service April 21, 2021 Admission HPI Per Admitting Provider This is a 70-year-old male that side over a month of severe left leg radiculopathy. Describes involving left buttock posterior thigh extending to the anterior tibia and occasionally into the foot. The right lower extremity is asymptomatic. He is undergone 1 epidural injection which seemed to exacerbate his radiculopathy. He has tried [id number] as well as narcotic pain medications to no avail. He is markedly uncomfortable. Notes significant weakness to left lower extremity when ambulating. Describes his pain as a 9 out of 10. Denies any loss of bowel bladder function. Principal Diagnosis Lumbar spinal stenosis with radiculopathy in herniated nucleus pulposus Discharge Data Allergies Allergy/AdvReac Type Severity Reaction Status Date / Time latex Allergy Intermediate Rash Verified 04/17/21 21:46 neoprene Allergy Intermediate Rash Uncoded 04/17/21 21:46 Consultations 04/17/21 23:21 ED Decision to Admit Stat 04/18/21 02:47 Consult Internal Medicine Routine Procedures Performed Operation Date: 04/18/21 11:25 <No data on this case meets the specified criteria> Operation Date: 04/19/21 07:00 Actual Procedures p L4-L5, L5-S1 Decompression Fusion, with spinal cord monitoring(Not Applicable) - Tushar Diez DO Ordered Studies 04/19/21 07:10 FL lumbar spine 2-3V Routine Hospital Course (1) Lumbar disc herniation with radiculopathy: Patient was admitted with severe radiculopathy and leg weakness underwent surgery the following day. He tolerated this well was taken to the orthopedic floor. Postop day #1 he was up and ambulating with him provement of his leg function. He progressed to postop day #2. Pain well controlled. Excellent strength testing. GILLES drain decreasing appropriately. Subsequently discharged home. Discharge orders instructions were on the chart for further review. Total Time Total Time Spent Total Time Spent (In Minutes): 20 minutes Discharge Plan Discharge Items Patient Disposition: Home - Self-Care Reason For Visit: INTRACTABLE BACK AND LEG PAIN Discharge Diagnosis: Lumbar spinal stenosis with herniated was pulposis. Activity: As commented below Non-emergency contact: Primary Care Provider Call non-emergency contact if: you have any medication questions Follow-up/Referrals: Melany Bar MD [Primary Care Provider] - Diet: Regular Addtl Attending Provider Instructions: ACTIVITY RECOMMENDATIONS: SELF CARE INSTRUCTIONS AFTER THORACIC/LUMBAR FUSIONS 1. You may walk to your tolerance. It is good exercise for your legs and back. Expect some back and intermittent leg aches and pains. 2. You may perform "counter-top" level activities (make a sandwich, bianca with a project, etc.). 3. No bending or lifting of more than 10 pounds or back twisting of any nature (roll like a log when turning in bed). 4. You may ride in a car for 20-30 minutes at a time. No driving until after your first visit with your doctor. 5. Frequent changes of position and restricting sitting to 30 minutes at a time will help limit the amount of back spasms and stiffness you may experience. 6. You may discontinue the use of ambulatory aids (cane, crutches, etc.) once your strength and confidence allow. 7. You may manager wind the shower and let water strike your incision when you arrive home at least once daily. Do not take a tub bath, sit in a hot tub or go into a swimming pool until after your first recheck in the office. SPECIAL CARE INSTRUCTIONS: VERY IMPORTANT TO READ AND REVIEW A. Your surgical incision has been closed with a cosmetic suture under the skin that will dissolve in about 6 weeks. In 14 days, you can use a pair of clean scissors and cut the suture that is left outside of the skin at the ends of your incision. 1. The small skin tapes can be removed 7 days after surgery if they have not fallen off by that point. 2. You may keep the wound open to air as much as possible to promote healing after post-op day number 5 unless told otherwise by your doctor. 3. If you think the wound looks like it is becoming infected (redness or worsening drainage) and/or you are experiencing fever, chill or worsening back pain and muscle spasms, contact the office so that we may evaluate you as soon as possible. B. Complications are uncommon, but please contact us if you have any signs or symptoms of: 1. wound infection (fever higher than 102.5 degrees F, redness, separation of wound, drainage, or increasing pain from the incision) 2. blood clots in legs (pain, swelling, redness and warmth in legs) 3. urinary tract infection (fever higher than 102.5 degrees F, burning upon urination or increased frequency of urination) 4. nerve problems (inability to walk on your toes or heels, numbness, loss of bowel or bladder control) 5. any other symptoms that concern you C. Please call the office at if you have any concerns or questions about your operation or recovery. D. No smoking! Smoking drastically decreases the chance of a solid fusion. E. Do not take any anti-inflammatory medications (Indocin, Advil, Motrin, Aspirin, Naprosyn, etc.) as these may inhibit the chance of a solid fusion. Tylenol is okay to take for pain. MANAGING PAIN AFTER SPINAL SURGERY 1. Narcotic medication is intended for short-term use and will be provided for surgical pain. Surgical pain usually lasts for a period of 4-6 weeks. Narcotic medication includes Percocet, Vicodin, Darvocet, Tylenol #3 or Lortab. 2. Longer-term pain is more appropriately treated with non-narcotic medication such as Tylenol ES. 3. Muscle spasm is not appropriately treated with narcotics. Muscle relaxers such as Soma, Flexeril or Skelaxin can be used along with Tylenol ES. 4. Remember that we all live with some "aches and pains". This is not unusual or uncommon after an injury or as we get older. a. Back pain is expected and may include muscle spasms for 4 to 6 weeks after surgery. The pain should gradually improve. If the pain worsens for no apparent reason, please contact the office. b. Intermittent leg pain may also be experienced and should not be concerned about unless it worsens for no apparent reason. If so, please contact the office. 5. We will provide appropriate medication within the normal guidelines of their prescribed use. We will also be very cautious and aware of potential abuse and extended duration of patients' medication needs. a. Pain medications are for your comfort and to assist with sleep and rest so that the tissue can heal. They are not provided in order to return to normal activity and should not be used through the day. To do so or worsening pain at night can result from ongoing tissue damage and development of tolerance to the prescribed medicine. 6. Please allow 2-3 days to process refills. Prescriptions will not be mailed but must be picked up at the office. FOLLOW UP VISIT: Keep your scheduled follow-up appointment. Any questions, please call the office at . Pending Studies at Discharge: No Stand-Alone Forms: My [facility], Smoking Cessation Medications and DC Order Prescriptions: New oxycodone 5 mg tablet 5 mg PO Q6H PRN (Reason: pain, severe) Qty: 30 RF: 0 tramadol 50 mg tablet 50 mg PO Q6H PRN (Reason: pain, moderate) Qty: 30 RF: 0 Continued propranolol 60 mg Capsule,Extended Release 24 Hr 60 mg PO QAM RF: 0 Discharge Orders: Discharge Order (Routine); Ordered 04/21/21 Ordered By: Tushar Diez Admission Data Admit Date/Time: 04/17/21 23:34 Attending Provider: Tushar Diez Admit Provider: Tushar Diez Primary Care Provider: Melany Bar V. Other Providers: Tushar Diez ; Nancy Valenzuela ; Jf Marie ; Shara Vincent
--- NOTE | 2021-04-21 11:34 | Hospitalist Progress Note ---
Date of Service April 21, 2021 Assessment & Plan (1) Intractable low back pain: (2) Left lumbar radiculopathy: Plan: S/PActual Procedures #1 lumbar decompression bilateral medial facetectomies and foraminotomies L3-4, L4-5 and L5-S1. #2 posterior spinal fusion L4-5 L5-S1. #3 placement posterior instrumentation L4-5 L5-S1. #4 interbody fusion L4-5 L5-S1. #5 placement of titanium interbody cage 12 x 26 mm at L4-L5 and 11 x 26 mm at L5-S1. #6 placement locally harvested morselized autograft in the posterior gutters. #7 placement infuse collagen sponge, and master graft in the posterior lateral gutters and I factor interbody space. 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 Marie, please see addendum Thank you for this consultation. We will follow the patient with you during their hospital stay. You can reach a member of the [facility] Hospitalist Team 04/12 via hospitalist role on tiger text. Plan: Attending Addendum: delayed entry date of service noted above care coordinated with HAYDEE Vincent please refer to her notes for full details, I agree with her notes patient seen and examined, records reviewed by myself as well on exam, patient seen resting in bed, comfortable reports abdominal bloating, no flatus, no BM no nausea/vomiting, pain no chest pain, dyspnea, palpitations, dizziness no other symptoms VS noted and reviewed oriented x3, not in distress, speaks in sentences with no effort nor accessory muscle use normal rate, regular rhythm, no murmurs clear breath sounds bilaterally mildly distended, hypoactive BS soft, nontender no bipedal edema, erythema, warmth no neuro deficits WBC 12 Hg 12 ASSESSMENT AND PLAN CONSTIPATION, POSSIBLE ILEUS KUB possible ileus Relistor ordered GI consulted S/P BACK SURGERY stable overall other diagnoses and plan of care as per BERNADINE Shara Marie MD Admission and Anticipated Discharge Date Admission Date: April 17, 2021 Subjective Seen and examined in 312-1. Feeling well today, minimal surgical site discomfort. No fever, chills, headache, lightheadedness, CP, SOB, N/V/D. Urinating without issue. Review of Systems Review of Systems: At least ten systems reviewed and negative except as noted in the HPI. Physical Exam Physical Exam: Gen: WD/WN, NAD, sitting in bedside chair, A&Ox3 HEENT: Normocephalic, atraumatic, conjunctivae moist, sclerae anicteric, mucous membranes moist Lung: Clear to Auscultation bilaterally, no wheezes/rales/rhonchi Heart: Regular rate, regular rhythm, no murmurs, rubs, or gallops Abdomen: Soft, NT, ND +BS x 4 Extremities: Spinal dressing c/d/i. GILLES drain visualized. No edema Skin: Warm, no rash Results & Data Results & Data ([facility]) Vital Signs (Past 12 Hours) Vital Signs Temp Pulse Resp BP Pulse Ox 04/21/21 07:49 37.3 C 70 24 137/68 94 Laboratory Results Short CBC 04/21/21 Range/Units 05:17 WBC 12.63 H (4.8-10.8) K/uL Hgb 12.4 L (14.0-18.0) g/dL Hct 36.9 L (42-52) % Plt Count 191 (130-400) K/uL Diagnostic Findings Lumbar Spine X-Ray 04/17/21 20:20 XR lumbar spine 2-3V CLINICAL HISTORY: pain eval for fx TECHNIQUE: 3 views of the lumbar spine were obtained. Comparison: None available at the time of this dictation. FINDINGS: No fractures or subluxations are identified. A sclerotic lesion in the superior vertebral body of L2 likely represents a Schmorl's node or bone island. Degenerative changes are seen in the lumbar spine. Alignment appears unremarkable. IMPRESSION: Degenerative changes as above without acute fracture or subluxation. ACT 112: Negative or not required by law. Electronically signed by: Spencer Echols M.D. 04/18/2021 8:53 AM Chest X-Ray 04/18/21 09:02 XR chest 1V portable CLINICAL HISTORY: preop TECHNIQUE: Single frontal radiograph of the chest was obtained. Comparison: Comparison is made to chest one view 08/26/2018 FINDINGS: No lines and tubes are seen. The cardiomediastinal silhouette is normal. The lungs are clear. No evidence of pleural effusion or pneumothorax. IMPRESSION: No acute chest disease. ACT 112: Negative or not required by law. Electronically signed by: Spencer Echols M.D. 04/18/2021 9:59 AM Lumbar Spine X-Ray 04/19/21 07:10 FL lumbar spine 2-3V CLINICAL HISTORY: L4-L5, L5-S1 DECOMP/FUSION COMPARISON STUDY: 04/17/2021 FLUOROSCOPY TIME: 22 seconds. FLUOROSCOPIC IMAGES: 2 FINDINGS: The patient is status post interpedicular screw and latricia fixation from L4 through S1 with disc spacers in place. IMPRESSION: Status post internal fixation. ACT 112: Negative or not required by law. Electronically signed by: Melecio Ortiz M.D. 04/19/2021 10:43 AM
[2021-04-21] MEDS ORDERED: LACTULOSE SYRUP 30 GM/45 ML UDP PO PRN (13:09)
--- NOTE | 2021-04-21 14:13 | XRay Report ---
KUB HISTORY: Acute generalized abdominal pain r/o ileus, obstruction COMPARISON: Chest radiograph 04/18/2021 FINDINGS: Mild gaseous distention is noted involving loops of both large and small bowel. Large bowel loops measure up to 6.3 cm. Small bowel loops measure up to 3.7 cm. No renal calculi. No ureteral ca lculi. No pneumoperitoneum or pneumatosis. A surgical drainage catheter projects over the lumbar spin e. Posterior interbody latricia and screw fusion hardware with discectomy changes at L4-S1. No fracture. IMPRESSION: 1. Mild gaseous distention involving both loops of large and small bowel suggests ileus. Follow-up re commended. 2. Postoperative changes of the lumbar spine with surgical drainage catheter. ACT 112: Negative or not required by law. The above report was generated using voice recognition software. It may contain grammatical, syntax o r spelling errors. Electronically signed by: Barber Pastrana M.D. 04/21/2021 2:12 PM
[2021-04-21] MEDS ORDERED: LACTULOSE SYRUP 10 GM/15 ML BTL 960 ML PO PRN (14:21)
[2021-04-21 15:17] LABS: BUN Creatinine Ratio 17.7 (10-20); Calcium 8.2 mg/dl (8.5-10.1); Creatinine Clr Calc Pharmacy 76.5 ml/min; Est GFR (African American) 83.7 ml/min; Est GFR (Non-African American) 72.2 ml/min; Potassium 3.9 mmol/L (3.5-5.1)
[2021-04-21] MEDS ORDERED: METHYLNALTREXONE BROMIDE 12 MG/0.6 ML VIAL SQ SCH (16:00)
[2021-04-21 19:42] LABS: Magnesium 2.2 mg/dl (1.8-2.4)
[2021-04-21] MEDS: DOCUSATE SODIUM/SENNA 50/8.6MG TAB PO SCH (21:12)
[2021-04-22] MEDS: POLYETHYLENE (MIRALAX) 17 GM PACK PO SCH ×3 (00:25→12:08)
[2021-04-22] MEDS: KETOROLAC TROMETHAMINE 15 MG/ML VIAL IV PRN (05:35)
[2021-04-22] MEDS: PROPRANOLOL HCL 60 MG LA CAP PO SCH (08:40)
--- NOTE | 2021-04-22 09:08 | Gastrointestinal Consultation ---
Date of Consultation April 22, 2021 Assessment & Plan (1) Ileus: Initially ordered KUB - but cancelled, not needed as the pt has now had relief from the constipation, does not have significant distention. No GI contraindication to regular diet or discharge. Recommend that he take Miralax daily, if no BM in 24 hrs then add a stimulant laxative. Pt tells me that his is an RN and will provide advice. Pt is hopeful to go home today. Supervising Physician Co-Signing Physician Notes I performed a history and physical examination of the patient today, including specifically on physical exam - soft abdomen. I have discussed the patient's management with the advanced practitioner. Please refer to the nurse practitioner's note for the documented findings and plan of care. Post Op ileus/opioid related, resolved after a dose of Relistor, now has normal BM. Recall GI if needed. History of Present Illness Attending Physician: Tushar Diez, DO History of Present Illness Mr. 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 Diez on 04/19/21. GI was consulted for post op ileus yesterday. Phone recommendation was to give a dose of Relistor. He had quite a bit of cramping and bloating followed by 2 formed bowel movements this morning and now has only mild diffuse abdominal cramping and discomfort. He feels much relieved. He denies any ongoing constipation problems at home. Allergies Allergy/AdvReac Type Severity Reaction Status Date / Time latex Allergy Intermediate Rash Verified 04/17/21 21:46 neoprene Allergy Intermediate Rash Uncoded 04/17/21 21:46 Home Medications Medication Instructions Recorded Confirmed Type propranolol 60 mg capsule,24 60 mg PO QAM 08/22/18 04/17/21 History hr,extended release oxycodone 5 mg tablet 5 mg PO Q6H PRN #30 tab 04/20/21 Rx tramadol 50 mg tablet 50 mg PO Q6H PRN #30 tab 04/20/21 Rx polyethylene glycol 3350 17 gram 17 g PO DAILY 7 Days #7 ea 04/22/21 Rx oral powder packet (Miralax) Patient History Medical History Aortic aneurysm PCP monitoring with annual imaging (3.8 cm per patient and stable x years) Deep vein thrombosis 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 2/2 inmobility in setting of knee injury; currently on xarelto Osteoarthritis Pulmonary embolism 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 2/2 inmobility in setting of knee injury; currently on xarelto Sleep apnea CPAP Tremor on propranolol Surgical History History of appendectomy History of arthroscopy of right knee History of colonoscopy History of tonsillectomy Status post right knee replacement Family History Father Family history of cancer Brother Family history of cancer Social History Smoking Status: Never smoker Second Hand Exposure: No; Do You Dip or Chew Tobacco: Yes (Daily); Tobacco Cessation Education Requested by Patient: No Hx Alcohol Use: Yes Alcohol type: beer Hx Substance Use: No Preferred Language: Bots[place] Communication Ability: Effective 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 Beliefs That Will Affect Care: None marital status: Current Living Situation: Spouse Other Information That Helps Us Care for You: No Feels Safe at Home: Yes Safety Concerns: Feels Safe At This Time Assistive Devices: Walker Review of Systems Review of Systems: ROS: Gen: Denies weakness, fevers, weight loss Eyes: No eye redness, or pain, no recent vision changes Resp: No SOB, no cough Cardio: No palpitations/irregular beats, no chest pain GI: As per HPI, otherwise negative : Denies pain on urination Skin: No jaundice, itching or new rashes M/S: surgical LBP Physical Exam Constitutional: well developed and cooperative Eyes: PERRL, conjunctivae normal, anicteric sclerae Respiratory: normal respiratory effort, lungs clear to auscultation Cardiovascular: RRR, no murmur, no edema Gastrointestinal (Abdomen): normal bowel sounds, soft, nontender, no hepatosplenomegaly + very mild distention Skin: no rashes, warm and dry Neurologic: PERRL, EOMI, accommodation nl, no face palsy, no dysarthria awake; not confused Psychiatric: A+Ox3, euthymic affect Results & Data ([facility]) Vital Signs (Past 12 Hours) Vital Signs Temp Pulse Pulse Resp BP Pulse Ox 04/22/21 08:39 64 04/22/21 07:00 36.6 C 58 L 16 137/73 94 04/21/21 22:51 37.6 C H 70 18 127/72 93 Laboratory Results WBC 12, Hb 12.4, HCT 36, PLT S191, NA 135, K3.9, BUN 18, CR 1.3 Diagnostic Findings KUB 04/21 1. Mild gaseous distention involving both loops of large and small bowel suggest s ileus. Follow-up recommended. 2. Postoperative changes of the lumbar spine with surgical drainage catheter.
--- NOTE | 2021-04-22 10:38 | XRay Report ---
KUB HISTORY: Abdominal distention. post op ileus COMPARISON: KUB 04/21/2021. FINDINGS: Mild gaseous distention of the small bowel seen in the prior study has essentially resolved in the interval. There is also slight improvement in the gas-filled nondilated colon. Findings are c onsistent with a resolving ileus. No evidence for bowel obstruction. Posterior fusion hardware at L4- S1 with pedicle screws and rods. There is a surgical drain overlying this location. No renal calculi . No ureteral calculi. No pneumoperitoneum or pneumatosis. IMPRESSION: Resolving ileus as described above. No evidence for bowel obstruction. ACT 112: Negative or not required by law. Electronically signed by: Guy Flores M.D. 04/22/2021 10:37 AM
--- NOTE | 2021-04-22 13:15 | Hospitalist Progress Note ---
Date of Service April 22, 2021 Assessment & Plan (1) Intractable low back pain: (2) Left lumbar radiculopathy: Plan: S/P #1 lumbar decompression bilateral medial facetectomies and foraminotomies L3-4, L4-5 and L5-S1. #2 posterior spinal fusion L4-5 L5-S1. #3 placement posterior instrumentation L4-5 L5-S1. #4 interbody fusion L4-5 L5-S1. #5 placement of titanium interbody cage 12 x 26 mm at L4-L5 and 11 x 26 mm at L5- S1. #6 placement locally harvested morselized autograft in the posterior gutters. #7 placement infuse collagen sponge, and master graft in the posterior lateral gutters and I factor interbody space. POD#3 ebl 200ml; GILLES drain in place tolerated procedure well Pain management, bowel regimen and DVT ppx per the primary team PT/OT consults after surgical procedure Hgb stable (3) Ileus: Plan: Abdominal distention, KUB with evidence of post op ileus on 04/21 GI consulted, recommended Relistor dose given last evening, patient had 2 bowel movements early this morning Repeat KUB shows resolving ileus Tolerating normal diet without issue (4) Aortic aneurysm: Plan: Hx of measuring 3.8 cm per pt Patient previously on Xarelto for history of DVT/PE which seemed to be provoked, he has not been on this medication for about 2 years now (5) Deep vein thrombosis: Plan: Occurred in December 2018 s/p right knee injury prior to TKA (6) Pulmonary embolism: Plan: Occurred in December 2018 s/p right knee injury prior to TKA (7) Sleep apnea: Plan: Continue CPAP - pt brought his own from home (8) Tremor: Plan: Continue propranolol Noted alcohol use of 3-4 beers daily, will order AWSS to monitor No s/sx of withdrawal DVT PPx: SCD/TEDS FULL CODE Dispo: Per primary service Patient was seen and examined in collaboration with Dr. Marie, please see addendum Thank you for this consultation. We will follow the patient with you during their hospital stay. You can reach a member of the [facility] Hospitalist Team 04/12 via hospitalist role on tiger text. Admission and Anticipated Discharge Date Admission Date: April 17, 2021 Supervising Physician Co-Signing Physician Notes Attending Addendum: delayed entry date of service noted above care coordinated with BERNADINE Vincent please refer to her notes for full details, I agree with her notes patient seen and examined, records reviewed by myself as well on exam, patient seen sitting up in bed, comfortable states he feels much better (+) BM no abdominal bloating, pain, nausea/vomiting no chest pain, dyspnea, palpitations, dizziness no other symptoms VS noted and reviewed oriented x 3 , not in distress, speaks in sentences with no effort nor accessory muscle use normal rate, regular rhythm, no murmurs clear breath sounds bilaterally non distended, normal BS soft, nontender no bipedal edema, erythema, warmth no neuro deficits Crea 1.0 ASSESSMENT AND PLAN ILEUS, CONSTIPATION, RESOLVED continue daily laxatives S/P BACK SURGERY stable overall other diagnoses and plan of care as per HAYDEE Vincent's notes Jf Marie MD Subjective Seen and examined in 312-1. Feeling well today, had 2 bowel movements early this morning and abdominal bloating has resolved. Endorses minimal surgical site discomfort. No fever, chills, headache, lightheadedness, CP, SOB, N/V/D. Urinating without issue. Review of Systems Review of Systems: At least ten systems reviewed and negative except as noted in the HPI. Physical Exam Physical Exam: Gen: WD/WN, NAD, sitting in bedside chair, A&Ox3 HEENT: Normocephalic, atraumatic, conjunctivae moist, sclerae anicteric, mucous membranes moist Lung: Clear to Auscultation bilaterally, no wheezes/rales/rhonchi Heart: Regular rate, regular rhythm, no murmurs, rubs, or gallops Abdomen: Soft, NT, ND +BS x 4 Extremities: Spinal dressing c/d/i. GILLES drain visualized. No edema Skin: Warm, no rash Results & Data Results & Data ([facility]) Vital Signs (Past 12 Hours) Vital Signs Temp Pulse Resp BP Pulse Ox 04/22/21 08:39 64 04/22/21 07:00 36.6 C 58 L 16 137/73 94 Laboratory Results [facility] 04/21/21 14:50 Sodium 135 L Potassium 3.9 Chloride 103 Carbon Dioxide 27 BUN 18 Creatinine 1.03 Glucose 111 H Calcium 8.2 L Diagnostic Findings Lumbar Spine X-Ray 04/17/21 20:20 XR lumbar spine 2-3V CLINICAL HISTORY: pain eval for fx TECHNIQUE: 3 views of the lumbar spine were obtained. Comparison: None available at the time of this dictation. FINDINGS: No fractures or subluxations are identified. A sclerotic lesion in the superior vertebral body of L2 likely represents a Schmorl's node or bone island. Degenerative changes are seen in the lumbar spine. Alignment appears unremarkable. IMPRESSION: Degenerative changes as above without acute fracture or subluxation. ACT 112: Negative or not required by law. Electronically signed by: Spencer Echols M.D. 04/18/2021 8:53 AM Chest X-Ray 04/18/21 09:02 XR chest 1V portable CLINICAL HISTORY: preop TECHNIQUE: Single frontal radiograph of the chest was obtained. Comparison: Comparison is made to chest one view 08/26/2018 FINDINGS: No lines and tubes are seen. The cardiomediastinal silhouette is normal. The lungs are clear. No evidence of pleural effusion or pneumothorax. IMPRESSION: No acute chest disease. ACT 112: Negative or not required by law. Electronically signed by: Spencer Echols M.D. 04/18/2021 9:59 AM Lumbar Spine X-Ray 04/19/21 07:10 FL lumbar spine 2-3V CLINICAL HISTORY: L4-L5, L5-S1 DECOMP/FUSION COMPARISON STUDY: 04/17/2021 FLUOROSCOPY TIME: 22 seconds. FLUOROSCOPIC IMAGES: 2 FINDINGS: The patient is status post interpedicular screw and latricia fixation from L4 through S1 with disc spacers in place. IMPRESSION: Status post internal fixation. ACT 112: Negative or not required by law. Electronically signed by: Melecio Ortiz M.D. 04/19/2021 10:43 AM KUB X-Ray 04/21/21 13:09 KUB HISTORY: Acute generalized abdominal pain r/o ileus, obstruction COMPARISON: Chest radiograph 04/18/2021 FINDINGS: Mild gaseous distention is noted involving loops of both large and small bowel. Large bowel loops measure up to 6.3 cm. Small bowel loops measure up to 3.7 cm. No renal calculi. No ureteral calculi. No pneumoperitoneum or pneumatosis. A surgical drainage catheter projects over the lumbar spine. Posterior interbody latricia and screw fusion hardware with discectomy changes at L4- S1. No fracture. IMPRESSION: 1. Mild gaseous distention involving both loops of large and small bowel suggests ileus. Follow-up recommended. 2. Postoperative changes of the lumbar spine with surgical drainage catheter. ACT 112: Negative or not required by law. The above report was generated using voice recognition software. It may contain grammatical, syntax or spelling errors. Electronically signed by: Barber Pastrana M.D. 04/21/2021 2:12 PM KUB X-Ray 04/22/21 08:23 KUB HISTORY: Abdominal distention. post op ileus COMPARISON: KUB 04/21/2021. FINDINGS: Mild gaseous distention of the small bowel seen in the prior study has essentially resolved in the interval. There is also slight improvement in the gas-filled nondilated colon. Findings are consistent with a resolving ileus. No evidence for bowel obstruction. Posterior fusion hardware at L4-S1 with pedicle screws and rods. There is a surgical drain overlying this location. No renal calculi. No ureteral calculi. No pneumoperitoneum or pneumatosis. IMPRESSION: Resolving ileus as described above. No evidence for bowel obstruction. ACT 112: Negative or not required by law. Electronically signed by: Guy Flores M.D. 04/22/2021 10:37 AM
--- NOTE | 2021-04-22 13:28 | Orthopedic Progress Note ---
Date of Service April 22, 2021 Assessment & Plan (1) Lumbar disc herniation with radiculopathy: Plan: This time the patient's GILLES drain decreased probably. Bowels working well. Ileus resolved. Subsequently discharged home. Discharge orders instructions were on the chart for further review. Admission and Anticipated Discharge Date Admission Date: April 17, 2021 Subjective Patient's back pain is controlled leg pain markedly improved bowels working well Physical Exam Physical Exam: Patient is ambulating without difficulty appears comfortable. Good strength testing. Results & Data ([facility]) Vital Signs (Past 12 Hours) Vital Signs Temp Pulse Resp BP Pulse Ox 04/22/21 08:39 64 04/22/21 07:00 36.6 C 58 L 16 137/73 94
[2021-04-22] MEDS: oxyCODONE HCL IR 5 MG TAB (IMMEDIATE RELEASE) PO PRN (14:19)
--- NOTE | 2021-05-03 13:33 | Coding Query ---
Your help is needed for correct coding of this account; please clarify if the patients Post-operative Ileus was: ( ) expected out of the surgery ( ) unexpected complication from the surgery ( x)other please specify: Ileus in the setting of Back Surgery Thank you Andrew [facility]
== END 2021-04-22 15:05 | disposition home or self-care (01) | DRG 454 ==
LOC: ED 18:48 → EDINP 23:34 → 3E 04-18 08:30